=== PATIENT | male | born 1960 | race Caucasian/White ===

== ENCOUNTER 2016-07-21 17:55 | Emergency (ER) | payer OTHER ==
[2016-07-21 18:29] VITALS: BP 120/80; PULSE 106; TEMP 98.7; BMI 21.8
--- NOTE | 2016-07-21 19:10 | PDOC ---
History of Present Illness - General History Source: Patient Exam Limitations: No Limitations - History of Present Illness Initial Comments: 07/21/16 19:30 The patient is a 55 year old male, with significant past medical history of ankylosing spondylosis, chronic neck and back pain, who presents today via ambulance complaining of neck and back pain. The patient describes the discomfort as being very stiff. He states that his neck stiffens when he turns to the left and right when he is sleeping. He states that he has not been compliant with his flexeril. He notes that he has an upcoming appointment with Dr. Ortiz tomorrow. Denies any trauma. Denies fever, chills. Denies chest pain, SOB. Allergies: Penicillin, clindamycin, codeine, fluoxetine HCl, metaxalone, oxycodone HCl, aspirin ROS General: No fevers or chills, no weakness, no weight loss HEENT: No change in vision. No sore throat,. No ear pain CardioVascular: No chest pain or shortness of breath Respiratory:No cough, or wheezing. Gastrointestinal: no nausea, vomiting, diarrhea or constipation, No rectal bleeding Genitourinary: No dysuria, hematuria, or frequency Musculoskeletal: +neck pain, +back pain. Neurologic: No headache, vertigo, dizziness or loss of consciousness Psychiatric: nor depression Skin: No rashes or easy bruising Endocrine: no increased thirst or abnormal weight change Allergic: no skin or latex allergy All other systems reviewed and normal PE GENERAL: The patient is awake, alert, and fully oriented, in mild distress. Body movements are stiff and he holds his neck and back stiff. HEAD: Normal with no signs of trauma. NECK: +Posterior diffuse mild tenderness with palpation with decreased motion secondary to his chronic spinal pain. BACK: +Decreased ROM secondary to chronic back pain. EYES: Pupils equal, round and reactive to light, extraocular movements intact, sclera anicteric, conjunctiva clear. EXTREMITIES: Normal range of motion, no edema. NEUROLOGICAL: Normal speech.. PSYCH: Normal mood, normal affect. SKIN: Warm, Dry, normal turgor, no rashes or lesions noted. <Christine Oneal - Last Filed: 07/21/16 19:31> - General History Source: Patient Exam Limitations: No Limitations - History of Present Illness Initial Comments: 07/21/16 19:45 A portion of this note was documented by scribe services under my direction. I have reviewed the details of the note, within reason, and agree with the documentation. The case summary and management plan written by me. Assessment and plan: This is a 85-year-old male who comes in complaining of acute exacerbation of his chronic pain associated with stiffness. Patient has multiple visits for his chronic pain issues and has a lot of anxiety associated with it. Patient is very anxious today and is concerned because he is stiffer than usual but did stop taking his Flexeril 2 days ago. Patient said that the 10 mg of his Flexeril was too much so I recommended that he restart the Flexeril at 5 mg. Patient took his own Flexeril here in the emergency room and does have an appointment to see his primary care doctor tomorrow. Patient discharged home. <Priyank Dyer I - Last Filed: 07/21/16 19:46> - General Chief Complaint: Chronic pain Stated Complaint: POSTERIOR NECK PAIN Time Seen by Provider: 07/21/16 19:10 Past History <Christine Oneal - Last Filed: 07/21/16 19:31> - Past Medical History Anemia: No Asthma: No Cancer: No Cardiac Disorders: No CVA: No COPD: No CHF: No Dementia: No Diabetes: No GI Disorders: No Disorders: Yes (GERD) HTN: No Hypercholesterolemia: No Liver Disease: No Psychiatric Problems: Yes (anxiety) Seizures: No Thyroid Disease: No - Surgical History Abdominal Surgery: Yes (HERNIA REPAIR) - Immunization History Immunization Up to Date: Yes - Psycho/Social/Smoking Cessation Hx Anxiety: Yes Suicidal Ideation: No Smoking Status: No Smoking History: Never smoked Have you smoked in the past 12 months: No Number of Cigarettes Smoked Daily: 0 Hx Alcohol Use: No Drug/Substance Use Hx: No Substance Use Type: None Hx Substance Use Treatment: No <Priyank Dyer I - Last Filed: 07/21/16 19:46> - Past Medical History Allergies/Adverse Reactions: Allergies Allergy/AdvReac Type Severity Reaction Status Date / Time Penicillins Allergy Intermediate Verified 06/22/16 12:30 clindamycin Allergy Verified 06/22/16 12:30 codeine phosphate Allergy Verified 06/22/16 12:30 [From Tylenol-Codeine] fluoxetine HCl [From Prozac] Allergy Verified 06/22/16 12:30 metaxalone [From Skelaxin] Allergy Verified 06/22/16 12:30 oxycodone HCl [From Percocet] Allergy Verified 06/22/16 12:30 aspirin AdvReac Verified 06/22/16 12:30 Home Medications: Ambulatory Orders Celecoxib [Celebrex] 200 mg PO HS 06/04/15 Cyclobenzaprine HCl [Flexeril] 5 mg PO BID 06/04/15 Celecoxib [Celebrex] 100 mg PO DAILY 11/10/15 Omeprazole 20 mg PO DAILY 06/13/16 Acetaminophen [Pain Reliever] 1,000 mg PO TID PRN 07/21/16 Diazepam [Valium] 1 mg PO DAILY PRN 07/21/16 Golimumab [Simponi -] 50 mg SQ MONTHLY 07/21/16 *Physical Exam - Vital Signs Last Vital Signs Temp Pulse Resp BP Pulse Ox 98.7 F 106 H 16 120/80 98 07/21/16 18:03 07/21/16 18:03 07/21/16 18:03 07/21/16 18:03 07/21/16 18:03 <Christine Oneal - Last Filed: 07/21/16 19:31> - Vital Signs Last Vital Signs Temp Pulse Resp BP Pulse Ox 98.7 F 106 H 16 120/80 98 07/21/16 18:03 07/21/16 18:03 07/21/16 18:03 07/21/16 18:03 07/21/16 18:03 <Priyank Dyer I - Last Filed: 07/21/16 19:46> *DC/Admit/Observation/Transfer - Attestations Scribe Attestion: 07/21/16 19:31 Documentation prepared by SANTY Buenrostro, acting as biomedical equipment technician for Priyank Dyer MD. <Christine Oneal - Last Filed: 07/21/16 19:31> - Discharge Dispostion Admit: No <Priyank Dyer I - Last Filed: 07/21/16 19:46> Diagnosis at time of Disposition: Back stiffness, Neck stiffness - Discharge Dispostion Disposition: HOME Condition at time of disposition: Good - Referrals Referrals: Eros Gómez MD [Primary Care Provider] - - Patient Instructions Additional Instructions: Restart the Flexeril as prescribed taking only 5 mg tablets instead of the 10 mg. Keep your appointment with your doctor for Friday. Return to the emergency department immediately with ANY new, persistent or worsening symptoms. Continue any medications as previously prescribed by your physician. You should follow up with your primary doctor as soon as possible regarding today's emergency department visit. . Please make sure your doctor reviews the results of your emergency evaluation. Thank you for coming to the Emergency Department today for your care. It was a pleasure to see you today. Please note that your evaluation is INCOMPLETE until you follow-up with your doctor.
== END 2016-07-21 19:30 | disposition home or self-care (01) ==
LOC: FER 17:55
DX: M54.9 Dorsalgia, unspecified (principal); M43.6 Torticollis; M45.9 Ankylosing spondylitis of unspecified sites in spine; K21.9 Gastro-esophageal reflux disease without esophagitis; F41.9 Anxiety disorder, unspecified
CPT/HCPCS: 99282-25

== ENCOUNTER 2016-11-09 17:50 | Emergency (ER) | payer OTHER ==
--- NOTE | 2016-11-09 17:53 | PDOC ---
History of Present Illness <Steven Ahn - Last Filed: 11/09/16 18:07> - General History Source: Patient Exam Limitations: No Limitations - History of Present Illness Initial Comments: 11/09/16 18:32 The patient is a 56 year old male, with a significant past medical history of anxiety, ankylosing spondylosis, chronic neck and back pain, who presents to the emergency department with an exacerbation of his back pain. The patient reports that his back pain and stiffness is a 9/10 in severity. He states that starting 8 weeks ago he began receiving an intramuscular biological agent for the pain every 2 weeks, and was supposed to get his 4th dose this past Friday but did not receive it. The patient states that he takes 1000mg tylenol tid and takes celebrex 100mg in the morning and 200mg at night. The patient denies chest pain, radiation of the pain into lower extremities. He denies shortness of breath, HERNANDEZ, fever, chills, sweats, cough, N/V/D, bladder or bowel incontinence and retention He denies upper or lower extremity weakness or paresthesia. He denies hematuria or dysuria. Allergies: penicillin, clindamycin, codeine, fluoxetine HCl, metaxalone, oxycodone HCl, aspirin Past surgical history: Hernia repair Social history: Never smoked. Denies alcohol or illicit drug use. Artist Mannequin Coloring: Dr. Zulay Bateman <Roselyn Santillan - Last Filed: 11/09/16 18:33> - General Chief Complaint: Pain, Acute Stated Complaint: PAIN TO SPINE Time Seen by Provider: 11/09/16 17:52 Past History - Past Medical History Anemia: No Asthma: No Cancer: No Cardiac Disorders: No CVA: No COPD: No CHF: No Dementia: No Diabetes: No GI Disorders: No Disorders: Yes (GERD) HTN: No Hypercholesterolemia: No Liver Disease: No Psychiatric Problems: Yes (anxiety) Seizures: No Thyroid Disease: No - Surgical History Abdominal Surgery: Yes (HERNIA REPAIR) - Immunization History Immunization Up to Date: Yes - Psycho/Social/Smoking Cessation Hx Anxiety: Yes Suicidal Ideation: No Smoking Status: No Smoking History: Never smoked Have you smoked in the past 12 months: No Number of Cigarettes Smoked Daily: 0 Hx Alcohol Use: No Drug/Substance Use Hx: No Substance Use Type: None Hx Substance Use Treatment: No <Steven Ahn - Last Filed: 11/09/16 18:07> <Roselyn Santillan - Last Filed: 11/09/16 18:33> - Past Medical History Allergies/Adverse Reactions: Allergies Allergy/AdvReac Type Severity Reaction Status Date / Time Penicillins Allergy Intermediate Verified 06/22/16 12:30 clindamycin Allergy Verified 06/22/16 12:30 codeine phosphate Allergy Verified 06/22/16 12:30 [From Tylenol-Codeine] fluoxetine HCl [From Prozac] Allergy Verified 06/22/16 12:30 metaxalone [From Skelaxin] Allergy Verified 06/22/16 12:30 oxycodone HCl [From Percocet] Allergy Verified 06/22/16 12:30 aspirin AdvReac Verified 06/22/16 12:30 Home Medications: Ambulatory Orders Celecoxib [Celebrex] 200 mg PO HS 06/04/15 Celecoxib [Celebrex] 100 mg PO DAILY 11/10/15 Acetaminophen [Pain Reliever] 1,000 mg PO TID PRN 07/21/16 Diazepam [Valium] 5 mg PO Q8H PRN #9 tablet MDD 3 11/09/16 Lorazepam [Ativan] 1 mg PO BID 11/09/16 Ranitidine HCl [Zantac 75] 75 mg PO DAILY 11/09/16 Review of Systems - Review of Systems Able to Perform ROS?: Yes Comments:: 11/09/16 18:32 CONSTITUTIONAL: Absent: fever, no chills, no fatigue EYES: Absent: visual changes ENT: Absent: ear pain, no sore throat CARDIOVASCULAR: Absent: chest pain, no palpitations RESPIRATORY: Absent: cough, no SOB GI: Absent: abdominal pain, no nausea, no vomiting, no constipation, no diarrhea GENITOURINARY: Absent: dysuria, no frequency, no hematuria MUSCULOSKELETAL: +Back pain and stiffness Absent: SKIN: Absent: rash <Roselyn Santillan - Last Filed: 11/09/16 18:33> *Physical Exam - Vital Signs Last Vital Signs Temp Pulse Resp BP Pulse Ox 98.2 F 88 16 124/85 11/09/16 17:52 11/09/16 17:52 11/09/16 17:52 11/09/16 17:52 - Physical Exam Comments: 11/09/16 18:33 GENERAL: Well-appearing, well-nourished. No apparent distress. HEENT: Normocephalic, atraumatic. PERRL, EOM intact. CARDIOVASCULAR: Normal S1, S2. Regular rate and rhythm. PULMONARY: Clear to auscultation bilaterally. ABDOMEN: Soft, non-distended, non-tender. EXTREMITIES: Normal ROM in all four extremities. No gross deformities. SKIN: Warm, dry. No rash NEUROLOGICAL: No focal neurological deficits. <Roselyn Santillan - Last Filed: 11/09/16 18:33> ED Treatment Course - Medications Given in the ED: ED Medications Discontinued Medications Generic Name Dose Route Start Last Admin Trade Name Freq PRN Reason Stop Dose Admin Ketorolac Tromethamine 60 mg 11/09/16 18:17 11/09/16 18:23 Toradol Injection - IM 11/09/16 18:18 60 mg ONCE ONE Administration <Roselyn Santillan - Last Filed: 11/09/16 18:33> Medical Decision Making - Medical Decision Making 11/09/16 18:07 The patient is well-appearing and in no acute distress He is slightly anxious. He states that in the past, he has been treated successfully with intramuscular Toradol followed by Valium Will provide 60 mg of intramuscular Toradol Will prescribe Valium He will follow-up with his chief power dispatcher on Friday for further evaluation Clinical impression: Acute exacerbation of chronic back pain secondary to ankylosing spondylitis I discussed the physical exam findings, ancillary test results and final diagnoses with the patient. I answered all of the patient's questions. The patient was satisfied with the care received and felt comfortable with the discharge plan and treatment plan. The patient will call their primary care physician within 24 hours to arrange follow-up and will return to the Emergency Department with any new, persistent or worsening symptoms. <Steven Ahn - Last Filed: 11/09/16 18:07> *DC/Admit/Observation/Transfer <Steven Ahn - Last Filed: 11/09/16 18:07> - Attestations Scribe Attestion: 11/09/16 18:33 Documentation prepared by SANTY Gr, acting as medical doctor md/medical director for Steven Ahn MD. <Roselyn Santillan - Last Filed: 11/09/16 18:33> Diagnosis at time of Disposition: Ankylosing spondylitis, Back pain - Discharge Dispostion Disposition: HOME Condition at time of disposition: Stable - Prescriptions Prescriptions: Diazepam [Valium] 5 mg PO Q8H PRN #9 tablet MDD 3 PRN Reason: Pain - Patient Instructions Printed Discharge Instructions: DI for Low Back Pain Additional Instructions: Return to the emergency department immediately with ANY new, persistent or worsening symptoms. You MUST call and follow up with your doctor tomorrow. Please make sure your doctor reviews the results of your emergency department evaluation.
--- NOTE | 2016-11-09 17:56 | PDOC ---
History of Present Illness - General Chief Complaint: Pain, Acute Stated Complaint: PAIN TO SPINE Time Seen by Provider: 11/09/16 17:52 Past History - Past Medical History Allergies/Adverse Reactions: Allergies Allergy/AdvReac Type Severity Reaction Status Date / Time Penicillins Allergy Intermediate Verified 06/22/16 12:30 clindamycin Allergy Verified 06/22/16 12:30 codeine phosphate Allergy Verified 06/22/16 12:30 [From Tylenol-Codeine] fluoxetine HCl [From Prozac] Allergy Verified 06/22/16 12:30 metaxalone [From Skelaxin] Allergy Verified 06/22/16 12:30 oxycodone HCl [From Percocet] Allergy Verified 06/22/16 12:30 aspirin AdvReac Verified 06/22/16 12:30 Home Medications: Ambulatory Orders Celecoxib [Celebrex] 200 mg PO HS 06/04/15 Cyclobenzaprine HCl [Flexeril] 5 mg PO BID 06/04/15 Celecoxib [Celebrex] 100 mg PO DAILY 11/10/15 Omeprazole 20 mg PO DAILY 06/13/16 Acetaminophen [Pain Reliever] 1,000 mg PO TID PRN 07/21/16 Diazepam [Valium] 1 mg PO DAILY PRN 07/21/16 Golimumab [Simponi -] 50 mg SQ MONTHLY 07/21/16 Anemia: No Asthma: No Cancer: No Cardiac Disorders: No CVA: No COPD: No CHF: No Dementia: No Diabetes: No GI Disorders: No Disorders: Yes (GERD) HTN: No Hypercholesterolemia: No Liver Disease: No Psychiatric Problems: Yes (anxiety) Seizures: No Thyroid Disease: No - Surgical History Abdominal Surgery: Yes (HERNIA REPAIR) - Immunization History Immunization Up to Date: Yes - Psycho/Social/Smoking Cessation Hx Anxiety: Yes Suicidal Ideation: No Smoking Status: No Smoking History: Never smoked Have you smoked in the past 12 months: No Number of Cigarettes Smoked Daily: 0 Hx Alcohol Use: No Drug/Substance Use Hx: No Substance Use Type: None Hx Substance Use Treatment: No *DC/Admit/Observation/Transfer - Discharge Dispostion Condition at time of disposition: Stable
[2016-11-09 18:16] VITALS: BP 124/85; PULSE 88; TEMP 98.2; BMI 22.0
[2016-11-09] MEDS ORDERED: KETOROLAC TROMETHAMINE 60 MG/2 ML VIAL IM ONE (18:17)
[2016-11-09] MEDS ORDERED: KETOROLAC TROMETHAMINE 60 MG/2 ML VIAL ONE (18:19)
== END 2016-11-09 19:08 | disposition home or self-care (01) ==
LOC: FER 17:50
PROC: 3E0233Z Introduction of Anti-inflammatory into Muscle, Percutaneous Approach (ICD-10-PCS; principal; 2016-11-09)
DX: M45.9 Ankylosing spondylitis of unspecified sites in spine (principal); M54.9 Dorsalgia, unspecified; F41.9 Anxiety disorder, unspecified
CPT/HCPCS: 99282-25

== ENCOUNTER 2016-12-06 13:05 | Emergency (ER) | payer OTHER ==
--- NOTE | 2016-12-06 13:19 | PDOC ---
History of Present Illness - General Chief Complaint: Pain Stated Complaint: BACK PAIN Time Seen by Provider: 12/06/16 13:09 History Source: Patient Exam Limitations: No Limitations - History of Present Illness Initial Comments: 12/06/16 13:09 The patient is a 56 year old male, with a significant past medical history of anxiety, ankylosing spondylosis, chronic neck and back pain, who presents to the emergency department with an exacerbation of his back pain. The patient reports that his back pain and stiffness is a 9/10 in severity. He was switched to Biologics instead of the medication which actually helped him previously ( due to his insurance regulation). He had his 5th shot last week of this new medication. Since then he has noted gradual worsening of his back and neck pain and stiffness No fevers or chills No trauma Pt ambulatory but is stiff His predominant symptoms is stiffness He denies fever, chills, sweats, cough, N/V/D, bladder or bowel incontinence and retention He contacted Dr. Bateman's office re: his symptoms He was told to come in to the ER Allergies: penicillin, clindamycin, codeine, fluoxetine HCl, metaxalone, oxycodone HCl, aspirin Past surgical history: Hernia repair Social history: Never smoked. Denies alcohol or illicit drug use. Project Management Engineer: Dr. Zulay Bateman GENERAL/CONSTITUTIONAL: No: fever, chills, weakness, loss of appetite. HEAD, EYES, EARS, NOSE AND THROAT: No: change in vision, ear pain, discharge, sore throat, throat swelling. CARDIOVASCULAR: No: chest pain, lightheadedness, palpitations, syncope RESPIRATORY: No: cough, shortness of breath, wheezing, hemoptysis, stridor. GASTROINTESTINAL: No: nausea, vomiting, diarrhea, abdominal cramping, rectal bleeding, constipation. GENITOURINARY: No: dysuria, hematuria, frequency, urgency, flank pain. MUSCULOSKELETAL: Yes: back stiffness, back pain, neck stiffness No: joint pain, muscle swelling or pain SKIN: No: lesions, pallor, rash or easy bruising. NEUROLOGIC: No: headache, vertigo, paresthesias, weakness ENDOCRINE: No: unexplained weight gain or loss HEMATOLOGIC/LYMPHATIC: No: anemia, easy bleeding, swelling nodes. GENERAL: The patient is in no acute distress. HEAD: Normal with no signs of trauma. EYES: PERRLA, EOMI, sclera anicteric, conjunctiva clear. ENT: Ears normal, nares patent, oropharynx clear without exudates. Moist mucous membranes. NECK: Normal range of motion, supple without lymphadenopathy, JVD, or masses. LUNGS: Breath sounds equal, clear to auscultation bilaterally. No wheezes, and no crackles. HEART: Regular rate and rhythm, normal S1 and S2 without murmur, rub or gallop. ABDOMEN: Soft, nontender, normoactive bowel sounds. No guarding, no rebound. No masses palpable. EXTREMITIES: Normal range of motion, no edema. No clubbing or cyanosis. No erythema, or tenderness. NEUROLOGICAL: Cranial nerves II through XII grossly intact. Normal speech. No focal neurological deficits. MUSCULOSKELETAL: Yes: Back non-tender to palpation, no CVA tenderness SKIN: Warm, Dry, normal turgor, no rashes or lesions noted. 12/06/16 13:51 Past History - Past Medical History Allergies/Adverse Reactions: Allergies Allergy/AdvReac Type Severity Reaction Status Date / Time Penicillins Allergy Intermediate Verified 06/22/16 12:30 clindamycin Allergy Verified 06/22/16 12:30 codeine phosphate Allergy Verified 06/22/16 12:30 [From Tylenol-Codeine] fluoxetine HCl [From Prozac] Allergy Verified 06/22/16 12:30 metaxalone [From Skelaxin] Allergy Verified 06/22/16 12:30 oxycodone HCl [From Percocet] Allergy Verified 06/22/16 12:30 aspirin AdvReac Verified 06/22/16 12:30 Home Medications: Ambulatory Orders Celecoxib [Celebrex] 200 mg PO HS 06/04/15 Celecoxib [Celebrex] 100 mg PO DAILY 11/10/15 Acetaminophen [Pain Reliever] 1,000 mg PO TID PRN 07/21/16 Lorazepam [Ativan] 1 mg PO BID 11/09/16 Ranitidine HCl [Zantac 75] 75 mg PO DAILY 11/09/16 Baclofen 10 mg PO DAILY 12/06/16 Dexlansoprazole [Dexilant] 30 mg PO DAILY 12/06/16 Methocarbamol [Robaxin -] 500 mg PO TID PRN #21 tablet 12/06/16 Quetiapine Fumarate [Seroquel -] 50 mg PO HS 12/06/16 Anemia: No Asthma: No Cancer: No Cardiac Disorders: No CVA: No COPD: No CHF: No Dementia: No Diabetes: No GI Disorders: No Disorders: Yes (GERD) HTN: No Hypercholesterolemia: No Liver Disease: No Psychiatric Problems: Yes (anxiety) Seizures: No Thyroid Disease: No - Surgical History Abdominal Surgery: Yes (HERNIA REPAIR) - Immunization History Immunization Up to Date: Yes - Psycho/Social/Smoking Cessation Hx Anxiety: Yes Suicidal Ideation: No Smoking Status: No Smoking History: Never smoked Have you smoked in the past 12 months: No Number of Cigarettes Smoked Daily: 0 Hx Alcohol Use: No Drug/Substance Use Hx: No Substance Use Type: None Hx Substance Use Treatment: No Medical Decision Making - Medical Decision Making 12/06/16 13:19 Will give toradol as this has helped in the past 12/06/16 13:58 Toradol given Pt is concerned about muscle spasm Will give Robaxin He has not had this before States Flexeril and Valium have not worked for him in the past Clinical impression: Flair of *DC/Admit/Observation/Transfer Diagnosis at time of Disposition: Ankylosing spondylitis Qualifiers: Ankylosing spondylitis location: multiple sites in spine Qualified Code(s): M45.0 - Ankylosing spondylitis of multiple sites in spine - Discharge Dispostion Disposition: HOME Condition at time of disposition: Stable Admit: No - Prescriptions Prescriptions: Methocarbamol [Robaxin -] 500 mg PO TID PRN #21 tablet PRN Reason: Pain - Referrals Referrals: Zulay Bateman MD [Primary Care Provider] - - Patient Instructions Printed Discharge Instructions: DI for Ankylosing Spondylitis Additional Instructions: Thank you so much for coming in to the ER today Please take Robaxin, maybe this will work for you Please return to the ER for persistence or worsening of symptoms Please see Dr Bateman in the office [email or web address]
[2016-12-06] MEDS ORDERED: KETOROLAC TROMETHAMINE 30 MG/1 ML VIAL IM ONE (13:20)
[2016-12-06] MEDS ORDERED: KETOROLAC TROMETHAMINE 30 MG/1 ML VIAL ONE (13:22)
[2016-12-06 13:23] VITALS: BP 121/69; PULSE 90; TEMP 98.1; BMI 21.7
== END 2016-12-06 14:10 | disposition home or self-care (01) ==
LOC: FER 13:05
PROC: 3E0333Z Introduction of Anti-inflammatory into Peripheral Vein, Percutaneous Approach (ICD-10-PCS; principal; 2016-12-06)
DX: M45.0 Ankylosing spondylitis of multiple sites in spine (principal); F41.9 Anxiety disorder, unspecified; K21.9 Gastro-esophageal reflux disease without esophagitis
CPT/HCPCS: 96372; 99282-25

== ENCOUNTER 2016-12-22 11:40 | Emergency (ER) | payer OTHER ==
--- NOTE | 2016-12-22 11:53 | PDOC ---
History of Present Illness - General Chief Complaint: Psychiatric Stated Complaint: SWELLING Time Seen by Provider: 12/22/16 11:52 History Source: Patient Exam Limitations: No Limitations - History of Present Illness Initial Comments: 12/22/16 11:53 The patient is a 56-year-old male with a significant past medical history of rheumatoid arthritis, anxiety, who presents to the emergency department because he is concerned that he has developed swelling in the right chest wall following the use of methotrexate yesterday. He states that methotrexate is a new medication for him, and has been prescribed once per week. He took the first dose yesterday. This morning, he feels that there may be some swelling in the right lateral chest wall. He denies swelling of the lips, tongue, throat, rash, dyspnea, wheeze, cough, abdominal pain, nausea, vomiting. He did not take any other new medications. He states that he has often had mild side effects from medications, and is concerned that he is developing a mild side effect from this one. Past History - Past Medical History Allergies/Adverse Reactions: Allergies Allergy/AdvReac Type Severity Reaction Status Date / Time Penicillins Allergy Intermediate Verified 06/22/16 12:30 clindamycin Allergy Verified 06/22/16 12:30 codeine phosphate Allergy Verified 06/22/16 12:30 [From Tylenol-Codeine] fluoxetine HCl [From Prozac] Allergy Verified 06/22/16 12:30 metaxalone [From Skelaxin] Allergy Verified 06/22/16 12:30 oxycodone HCl [From Percocet] Allergy Verified 06/22/16 12:30 aspirin AdvReac Verified 06/22/16 12:30 Home Medications: Ambulatory Orders Celecoxib [Celebrex] 200 mg PO HS 06/04/15 Celecoxib [Celebrex] 100 mg PO DAILY 11/10/15 Acetaminophen [Pain Reliever] 1,000 mg PO TID PRN 07/21/16 Lorazepam [Ativan] 1 mg PO BID 11/09/16 Ranitidine HCl [Zantac 75] 75 mg PO DAILY 11/09/16 Baclofen 10 mg PO DAILY 12/06/16 Dexlansoprazole [Dexilant] 30 mg PO DAILY 12/06/16 Methocarbamol [Robaxin -] 500 mg PO TID PRN #21 tablet 12/06/16 Quetiapine Fumarate [Seroquel -] 50 mg PO HS 12/06/16 Anemia: No Asthma: No Cancer: No Cardiac Disorders: No CVA: No COPD: No CHF: No Dementia: No Diabetes: No GI Disorders: No Disorders: Yes (GERD) HTN: No Hypercholesterolemia: No Liver Disease: No Psychiatric Problems: Yes (anxiety) Seizures: No Thyroid Disease: No - Surgical History Abdominal Surgery: Yes (HERNIA REPAIR) - Immunization History Immunization Up to Date: Yes - Psycho/Social/Smoking Cessation Hx Anxiety: Yes Suicidal Ideation: No Smoking Status: No Smoking History: Never smoked Have you smoked in the past 12 months: No Number of Cigarettes Smoked Daily: 0 Hx Alcohol Use: No Drug/Substance Use Hx: No Substance Use Type: None Hx Substance Use Treatment: No Review of Systems - Review of Systems Comments:: 12/22/16 11:55 CONSTITUTIONAL: Absent: fever, chills, fatigue EYES: Absent: visual changes ENT: Absent: ear pain, sore throat CARDIOVASCULAR: Absent: chest pain, palpitations, loss of consciousness RESPIRATORY: Absent: cough, SOB GI: Absent: abdominal pain, nausea, vomiting, constipation, diarrhea GENITOURINARY: Absent: dysuria, frequency, hematuria MUSKULOSKELETAL: Absent: back pain, arthralgia, myalgia SKIN: Absent: rash NEURO: Absent: headache, dizziness *Physical Exam - Physical Exam Comments: 12/22/16 11:55 GENERAL: Well-appearing, well-nourished. No apparent distress. HEENT: Normocephalic, atraumatic. PERRL, EOM intact. CARDIOVASCULAR: Normal S1, S2. Regular rate and rhythm. PULMONARY: Clear to auscultation bilaterally. ABDOMEN: Soft, non-distended, non-tender. EXTREMITIES: Normal ROM in all four extremities. No gross deformities. SKIN: Warm, dry. No rash NEUROLOGICAL: No focal neurological deficits. Medical Decision Making - Medical Decision Making 12/22/16 11:55 The patient is well-appearing and in no acute distress There is no objective evidence of swelling in the area which she describes Lungs are clear Abdomen is nontender Given that there is no objective evidence of his complaint, that his complaint is not escalating, and that he is not supposed to take an additional dose of methotrexate for another 6 days, I advised him to discuss further methotrexate use with his commercial mortgage broker I feel that he is stable for discharge He understands the need to return if his symptoms worsen or if he develops new symptoms Clinical impression: Concerned for possible adverse medication effects I discussed the physical exam findings, ancillary test results and final diagnoses with the patient. I answered all of the patient's questions. The patient was satisfied with the care received and felt comfortable with the discharge plan and treatment plan. The patient will call their primary care physician within 24 hours to arrange follow-up and will return to the Emergency Department with any new, persistent or worsening symptoms. *DC/Admit/Observation/Transfer Diagnosis at time of Disposition: Medication adverse effect - Discharge Dispostion Disposition: HOME Condition at time of disposition: Good - Referrals Referrals: Zulay Bateman MD [Primary Care Provider] - - Patient Instructions Printed Discharge Instructions: DI for Rheumatoid Arthritis Additional Instructions: Please speak with your commercial mortgage broker about further methotrexate use. Return to the emergency department immediately with ANY new, persistent or worsening symptoms. You MUST call and follow up with your doctor tomorrow. Please make sure your doctor reviews the results of your emergency department evaluation.
[2016-12-22 12:06] VITALS: BP 124/77; PULSE 90; TEMP 97.7; BMI 21.7
== END 2016-12-22 12:08 | disposition home or self-care (01) ==
LOC: FER 11:40
DX: T45.1X1A Poisoning by antineoplastic and immunosuppressive drugs, accidental (unintentional), initial encounter (principal); Y93.9 Activity, unspecified; Y92.9 Unspecified place or not applicable; M06.9 Rheumatoid arthritis, unspecified; F41.9 Anxiety disorder, unspecified; K21.9 Gastro-esophageal reflux disease without esophagitis
CPT/HCPCS: 99282-25

== ENCOUNTER 2016-12-24 10:03 | Emergency (ER) | payer OTHER ==
[2016-12-24] MEDS ORDERED: CYCLOBENZAPRINE HCL 10 MG TABLET (FP) PO ONE (10:19)
--- NOTE | 2016-12-24 10:19 | PDOC ---
History of Present Illness - General Chief Complaint: Pain, Acute Stated Complaint: STIFFNESS AND PAIN TO NECK AND LOWER BACK Time Seen by Provider: 12/24/16 10:14 History Source: Patient Exam Limitations: No Limitations - History of Present Illness Initial Comments: 12/24/16 10:14 56 y/o male with ankylosing spondylitis, presents to the ER via ambulance due to increase neck and back spasms. Patient was stopped from taking his prednisone and placed on Methotrexate. Ever since starting this he has had increase back pain. No fever or chills. No weakness or numbness. Denies fall or trauma. Took another new medication this morning Zanaflex. Denies SOB or chest pain. No incontinence or procedures. Severity: mild Past History - Past Medical History Allergies/Adverse Reactions: Allergies Allergy/AdvReac Type Severity Reaction Status Date / Time Penicillins Allergy Intermediate Verified 12/24/16 10:05 clindamycin Allergy Verified 12/24/16 10:06 codeine phosphate Allergy Verified 12/24/16 10:06 [From Tylenol-Codeine] fluoxetine HCl [From Prozac] Allergy Verified 12/24/16 10:06 metaxalone [From Skelaxin] Allergy Verified 12/24/16 10:06 oxycodone HCl [From Percocet] Allergy Verified 12/24/16 10:07 aspirin AdvReac Verified 12/24/16 10:07 Home Medications: Ambulatory Orders Celecoxib [Celebrex] 200 mg PO HS 06/04/15 Celecoxib [Celebrex] 100 mg PO DAILY 11/10/15 Lorazepam [Ativan] 0.5 mg PO TID 11/09/16 Ranitidine HCl [Zantac 75] 75 mg PO DAILY 11/09/16 Quetiapine Fumarate [Seroquel -] 50 mg PO HS 12/06/16 Folic Acid 1 mg PO ASDIR 12/22/16 Methotrexate [Mexate -] 10 mg PO Q7D 12/22/16 Anemia: No Asthma: No Cancer: No Cardiac Disorders: No CVA: No COPD: No CHF: No Dementia: No Diabetes: No GI Disorders: No Disorders: Yes (GERD) HTN: No Hypercholesterolemia: No Liver Disease: No Psychiatric Problems: Yes (anxiety) Seizures: No Thyroid Disease: No - Surgical History Abdominal Surgery: Yes (HERNIA REPAIR) - Immunization History Immunization Up to Date: Yes - Psycho/Social/Smoking Cessation Hx Anxiety: Yes Suicidal Ideation: No Smoking Status: No Smoking History: Never smoked Have you smoked in the past 12 months: No Number of Cigarettes Smoked Daily: 0 Hx Alcohol Use: No Drug/Substance Use Hx: No Substance Use Type: None Hx Substance Use Treatment: No Review of Systems - Review of Systems Able to Perform ROS?: Yes Is the patient limited Kiswahili proficient: No Constitutional: No: Chills, Fever Respiratory: No: Cough, Shortness of Breath Cardiac (ROS): No: Chest Pain, Edema, Irregular Heart Rate ABD/GI: No: Nausea, Vomiting Musculoskeletal: Yes: Back Pain, Muscle Pain, Neck Pain. No: Muscle Weakness Neurological: No: Headache, Numbness, Paresthesia All Other Systems: Reviewed and Negative *Physical Exam - Physical Exam General Appearance: Yes: Nourished, Appropriately Dressed. No: Apparent Distress HEENT: positive: EOMI, CARLOS, Normal ENT Inspection Neck: positive: Trachea midline, Normal Thyroid, Supple. negative: Tender, Rigid Respiratory/Chest: positive: Lungs Clear, Normal Breath Sounds. negative: Chest Tender, Respiratory Distress Cardiovascular: positive: Regular Rhythm, Regular Rate, S1, S2. negative: Edema , JVD, Murmur Vascular Pulses: Femoral (R): 4+, Femoral (L): 4+, Carotid (R): 4+, Carotid (L) : 4+, Dorsalis-Pedis (R): 4+, Doralis-Pedis (L): 4+ Gastrointestinal/Abdominal: positive: Normal Bowel Sounds, Flat, Soft. negative : Tender, Organomegaly, Pulsatile Mass Musculoskeletal: positive: Normal Inspection. negative: CVA Tenderness Extremity: positive: Normal Capillary Refill, Normal Inspection, Normal Range of Motion. negative: Tender, Calf Tenderness Neurologic: positive: football pad repairer II-XII NML intact, Fully Oriented, Alert, Normal Mood/ Affect, Normal Response, Motor Strength 5/5 (strength 5+/5 b/l in UE and LE, no focal deficits noted, no menigeal sign, no spinous process tenderness, decreased ROM or cervical and thoracic spine) ED Treatment Course - ADDITIONAL ORDERS Additional order review: 12/24/16 10:18 Pt with anklyosing spondylitis, will give Flexeril and watch Pt is in agreement with plan 12/24/16 11:17 Pt is ambulating, feeling better. No neurological deficits noted Pt is ready to go home follow up with production operator if worsen return to ER *DC/Admit/Observation/Transfer Diagnosis at time of Disposition: Muscle spasm of back Ankylosing spondylitis Qualifiers: Ankylosing spondylitis location: unspecified site of spine Qualified Code(s): M45.9 - Ankylosing spondylitis of unspecified sites in spine - Discharge Dispostion Disposition: HOME Condition at time of disposition: Stable Admit: No - Patient Instructions Printed Discharge Instructions: DI for Ankylosing Spondylitis Additional Instructions: Call Salvage Engineer to follow up Continue current treatment If worsen return to ER
[2016-12-24 10:24] VITALS: BP 131/82; PULSE 101; TEMP 98.3; BMI 51.6
[2016-12-24] MEDS ORDERED: CYCLOBENZAPRINE HCL 10 MG TABLET (FP) ONE (10:46)
== END 2016-12-24 11:23 | disposition home or self-care (01) ==
LOC: FER 10:03
DX: M54.9 Dorsalgia, unspecified (principal); K21.9 Gastro-esophageal reflux disease without esophagitis; F41.9 Anxiety disorder, unspecified
CPT/HCPCS: 99282-25

== ENCOUNTER 2016-12-25 13:23 | Emergency (ER) | payer OTHER ==
[2016-12-25 13:37] VITALS: BP 138/78; PULSE 72; TEMP 98.3; BMI 26.6
[2016-12-25] MEDS ORDERED: LORazepam 1 MG TABLET PO ONE (14:05)
[2016-12-25] MEDS ORDERED: LORazepam 0.5 MG TABLET ONE (14:07)
--- NOTE | 2016-12-25 14:10 | PDOC ---
History of Present Illness - General Chief Complaint: Chronic pain Stated Complaint: BACK PAIN Time Seen by Provider: 12/25/16 14:04 - History of Present Illness Initial Comments: 12/25/16 15:29 Chief complaint: Neck stiffness History of present illness: Patient with severe ankylosing spondylitis under the care of a field radio technician, pain management physician, presents with increased neck pain and stiffness since this morning. No injury. The patient has frequent exacerbations and is seen in the emergency room regularly. Anxiety is a strong component of the illness as well. His field radio technician recently prescribed methotrexate and folic acid. He took several doses of 2.5 mg methotrexate and discontinued it because of "side effects". This is the usual pattern. He frequently presents to the emergency room after trying a new medication for several days and attributes his worsening condition to the new drug. Review of systems: No other symptoms including chest pain shortness of breath abdominal pain nausea vomiting diarrhea visual or focal neurologic symptoms unsteadiness of gait Past medical, social, family history reviewed and noncontributory Physical exam: Alert and oriented 3, well-developed well-nourished, moderate distress secondary to neck stiffness and pain Afebrile, vital signs normal Spasm and straightening of the cervical spine without sign of acute inflammation. No point tenderness or other deformity. No radicular symptoms to the upper arms. Impression: Exacerbation of chronic neck pain, anxiety Plan: Refill benzodiazepine. Administered Tylenol and Ativan. To follow-up with batcher operator in pain management physician as soon as possible. Fully ambulatory and in his usual state upon discharge to follow-up as directed Past History - Past Medical History Allergies/Adverse Reactions: Allergies Allergy/AdvReac Type Severity Reaction Status Date / Time Penicillins Allergy Intermediate Verified 12/25/16 13:25 clindamycin Allergy Verified 12/25/16 13:25 codeine phosphate Allergy Verified 12/25/16 13:25 [From Tylenol-Codeine] fluoxetine HCl [From Prozac] Allergy Verified 12/25/16 13:25 metaxalone [From Skelaxin] Allergy Verified 12/25/16 13:25 oxycodone HCl [From Percocet] Allergy Verified 12/25/16 13:25 aspirin AdvReac Verified 12/25/16 13:25 Home Medications: Ambulatory Orders Celecoxib [Celebrex] 200 mg PO HS 06/04/15 Celecoxib [Celebrex] 100 mg PO DAILY 11/10/15 Lorazepam [Ativan] 0.5 mg PO TID 11/09/16 Ranitidine HCl [Zantac 75] 75 mg PO DAILY 11/09/16 Quetiapine Fumarate [Seroquel -] 50 mg PO HS 12/06/16 Folic Acid 1 mg PO ASDIR 12/22/16 Methotrexate [Mexate -] 10 mg PO Q7D 12/22/16 Lorazepam [Ativan] 0.5 mg PO TID #10 tablet MDD 3 12/25/16 Anemia: No Asthma: No Cancer: No Cardiac Disorders: No CVA: No COPD: No CHF: No Dementia: No Diabetes: No GI Disorders: No Disorders: Yes (GERD) HTN: No Hypercholesterolemia: No Liver Disease: No Psychiatric Problems: Yes (anxiety) Seizures: No Thyroid Disease: No - Surgical History Abdominal Surgery: Yes (HERNIA REPAIR) - Immunization History Immunization Up to Date: Yes - Psycho/Social/Smoking Cessation Hx Anxiety: Yes Suicidal Ideation: No Smoking Status: No Smoking History: Never smoked Have you smoked in the past 12 months: No Number of Cigarettes Smoked Daily: 0 Information on smoking cessation initiated: No Hx Alcohol Use: No Drug/Substance Use Hx: No Substance Use Type: None Hx Substance Use Treatment: No *Physical Exam - Vital Signs Last Vital Signs Temp Pulse Resp BP Pulse Ox 98.3 F 72 20 138/78 98 12/25/16 13:24 12/25/16 13:24 12/25/16 13:24 12/25/16 13:24 12/25/16 13:24 *DC/Admit/Observation/Transfer Diagnosis at time of Disposition: Anxiety - Discharge Dispostion Disposition: HOME Condition at time of disposition: Stable Admit: No - Prescriptions Prescriptions: Lorazepam [Ativan] 0.5 mg PO TID #10 tablet MDD 3 - Patient Instructions Printed Discharge Instructions: DI for Chronic Neck Pain
== END 2016-12-25 15:09 | disposition home or self-care (01) ==
LOC: FER 13:23
DX: F41.9 Anxiety disorder, unspecified (principal); K21.9 Gastro-esophageal reflux disease without esophagitis; M45.9 Ankylosing spondylitis of unspecified sites in spine
CPT/HCPCS: 99282-25

== ENCOUNTER 2017-05-19 16:38 | Emergency (ER) | payer OTHER ==
[2017-05-19 16:55] VITALS: BP 155/88; PULSE 85; TEMP 98; BMI 26.6
--- NOTE | 2017-05-19 17:18 | PDOC ---
History of Present Illness <Mary Earl - Last Filed: 05/19/17 17:31> - History of Present Illness Initial Comments: 05/19/17 17:27 The patient is a 56 year old male, with a significant past medical history of anxiety, ankylosing spondylitis (sees a retail wireless associate), chronic neck and back pain, who presents to the emergency department with cervical pain and back pain( 1 month). He states that he felt a sharp pain in his neck, rates it 9/10. His retail wireless associate wants him to follow up with his neurologist. He denies any recent fevers, chills, headache or dizziness. He denies any recent nausea, vomit, diarrhea or constipation. He denies any recent chest pain or shortness of breath. He denies any recent dysuria, frequency, urgency or hematuria. <Aster Morales - Last Filed: 05/19/17 17:34> - General Chief Complaint: Pain, Acute Stated Complaint: low back pain Time Seen by Provider: 05/19/17 16:48 Past History - Past Medical History Anemia: No Asthma: No Cancer: No Cardiac Disorders: No CVA: No COPD: No CHF: No Dementia: No Diabetes: No GI Disorders: No Disorders: Yes (GERD) HTN: No Hypercholesterolemia: No Liver Disease: No Psychiatric Problems: Yes (anxiety) Seizures: No Thyroid Disease: No - Surgical History Abdominal Surgery: Yes (HERNIA REPAIR) - Immunization History Immunization Up to Date: Yes - Suicide/Smoking/Psychosocial Hx Smoking Status: No Smoking History: Never smoked Have you smoked in the past 12 months: No Number of Cigarettes Smoked Daily: 0 Hx Alcohol Use: No Drug/Substance Use Hx: No Substance Use Type: Prescribed Hx Substance Use Treatment: No <Mary Earl - Last Filed: 05/19/17 17:31> <Aster Morales - Last Filed: 05/19/17 17:34> - Past Medical History Allergies/Adverse Reactions: Allergies Allergy/AdvReac Type Severity Reaction Status Date / Time Penicillins Allergy Intermediate Verified 05/19/17 16:40 clindamycin Allergy Verified 05/19/17 16:40 codeine phosphate Allergy Verified 05/19/17 16:40 [From Tylenol-Codeine] cyclobenzaprine HCl Allergy Verified 05/19/17 16:41 [From Flexeril] fluoxetine HCl [From Prozac] Allergy Verified 05/19/17 16:40 metaxalone [From Skelaxin] Allergy Verified 05/19/17 16:40 oxycodone HCl [From Percocet] Allergy Verified 05/19/17 16:40 aspirin AdvReac Verified 05/19/17 16:40 Home Medications: Ambulatory Orders Celecoxib [Celebrex] 200 mg PO HS 06/04/15 Lorazepam [Ativan] 1 mg PO BID 11/09/16 Quetiapine Fumarate [Seroquel -] 50 mg PO HS 12/06/16 Folic Acid 1 mg PO ASDIR 12/22/16 Methotrexate [Mexate -] 2.5 mg PO Q7D 12/22/16 Gabapentin [Neurontin -] 300 mg PO HS 05/19/17 Tizanidine HCl 2 mg PO TID 05/19/17 Review of Systems - Review of Systems Comments:: 05/19/17 17:28 GENERAL/CONSTITUTIONAL: No fever or chills. No weakness. HEAD, EYES, EARS, NOSE AND THROAT: No change in vision. No ear pain or discharge. No sore throat. GASTROINTESTINAL: No nausea, vomiting, diarrhea or constipation. GENITOURINARY: No dysuria, frequency, or change in urination. CARDIOVASCULAR: No chest pain or shortness of breath. RESPIRATORY: No cough, wheezing, or hemoptysis. MUSCULOSKELETAL: +back pain. +neck pain. SKIN: No rash NEUROLOGIC: No headache, vertigo, loss of consciousness, or change in strength/ sensation. ENDOCRINE: No increased thirst. No abnormal weight change. HEMATOLOGIC/LYMPHATIC: No anemia, easy bleeding, or history of blood clots. ALLERGIC/IMMUNOLOGIC: No hives or skin allergy. <Aster Morales - Last Filed: 05/19/17 17:34> *Physical Exam - Vital Signs Last Vital Signs Temp Pulse Resp BP Pulse Ox 98 F 85 18 155/88 100 05/19/17 16:39 05/19/17 16:39 05/19/17 16:39 05/19/17 16:39 05/19/17 16:39 <Mayr Earl - Last Filed: 05/19/17 17:31> - Vital Signs Last Vital Signs Temp Pulse Resp BP Pulse Ox 98 F 85 18 155/88 100 05/19/17 16:39 05/19/17 16:39 05/19/17 16:39 05/19/17 16:39 05/19/17 16:39 - Physical Exam Comments: 05/19/17 17:28 GENERAL: Anxious-appearing. Awake, alert, and fully oriented. HEAD: No signs of trauma EYES: PERRLA, EOMI, sclera anicteric, conjunctiva clear ENT: Auricles normal inspection, nares patent, Moist mucosa NECK: Limited ROM, supple, no lymphadenopathy, JVD, or masses LUNGS: Breath sounds equal, clear to auscultation bilaterally. No wheezes, and no crackles HEART: Regular rate and rhythm, normal S1 and S2, no murmurs, rubs or gallops ABDOMEN: Soft, nontender, normoactive bowel sounds. No guarding, no rebound. No masses EXTREMITIES: 5/5 strength in upper extremities. Sensation intact. Normal range of motion, no edema. No clubbing or cyanosis. No cords, erythema, or tenderness NEUROLOGICAL: Normal speech SKIN: Warm, Dry, normal turgor, no rashes or lesions noted. <Aster Morales - Last Filed: 05/19/17 17:34> Medical Decision Making - Medical Decision Making 05/19/17 17:13 56 yo male with h/o ankylosing spondylitis, followed by retail wireless associate, here today c/o back pain, neck pain. new new weakness or numbness. has been taking gabapentin, and muscle relaxers were not working (alleric to skelaxin and flexaril) has appointment tomorrow to get his moe injection. on exam awake alert. lungs clear. strength normal and sensation intact. plan nsaids. follow up tomorrow with rheumatoloist. 05/19/17 17:31 pt declined toradol, percocet and valium in ed. will like to go home and followup tomorrow. <Mary Earl - Last Filed: 05/19/17 17:31> *DC/Admit/Observation/Transfer - Discharge Dispostion Admit: No <Mary Earl - Last Filed: 05/19/17 17:31> - Attestations Scribe Attestion: 05/19/17 17:34 Documentation prepared by Aster Morales, acting as director biomedical engineering for Mary Earl MD. <Aster Morales - Last Filed: 05/19/17 17:34> Diagnosis at time of Disposition: Cervical paraspinal muscle spasm - Discharge Dispostion Disposition: HOME Condition at time of disposition: Improved - Referrals Referrals: Steven Vasquez MD [Staff Physician] - - Patient Instructions Printed Discharge Instructions: Torticollis Additional Instructions: you should follow up your orthopedist or retail wireless associate tomorrow. return for any weakness numbness or any concerns.
== END 2017-05-19 17:37 | disposition home or self-care (01) ==
LOC: FER 16:38
DX: M62.838 Other muscle spasm (principal); M45.9 Ankylosing spondylitis of unspecified sites in spine; F41.9 Anxiety disorder, unspecified; K21.9 Gastro-esophageal reflux disease without esophagitis
CPT/HCPCS: 99281-25

== ENCOUNTER 2017-05-29 15:50 | Emergency (ER) | payer OTHER ==
[2017-05-29 15:56] VITALS: BP 126/72; PULSE 90; TEMP 98.5; BMI 25.0
[2017-05-29] MEDS ORDERED: diphenhydrAMINE HCL 25 MG CAPSULE (FP) PO ONE ×2 (16:32→16:35)
--- NOTE | 2017-05-29 16:33 | PDOC ---
History of Present Illness - General History Source: Patient, Old Records Exam Limitations: No Limitations <Yovani Lucio - Last Filed: 05/29/17 16:33> - General History Source: Patient Exam Limitations: No Limitations - History of Present Illness Initial Comments: 05/29/17 16:55 The patient is a 56-year-old male, with a significant past medical history of ankylosing spondylitis, chronic neck pain, back pain, and anxiety, who presents to the ED for chronic neck pain. Patient believes that his symptoms are being caused by nerve pain that he has been experiencing for the past 3 weeks. He has been visiting his Surgery Scheduling Coordinator for the pain for which he was prescribed gabapentin. He has been taking the medication intermittently over the past few weeks since he was not sure if the medication was causing him to develop more pain and neck stiffness. Pt is also taking tizanidine 2 mg every 8 hours with relief of his neck pain. He reports taking benztropine in the past which also improved his neck pain. He denies having any other injuries or symptoms. <Sruthi Kidd - Last Filed: 05/29/17 16:59> - General Chief Complaint: Pain Stated Complaint: BACK, NECK PAIN Time Seen by Provider: 05/29/17 15:52 Past History - Past Medical History Anemia: No Asthma: No Cancer: No Cardiac Disorders: No CVA: No COPD: No CHF: No Dementia: No Diabetes: No GI Disorders: No Disorders: Yes (GERD) HTN: No Hypercholesterolemia: No Liver Disease: No Psychiatric Problems: Yes (anxiety) Seizures: No Thyroid Disease: No - Surgical History Abdominal Surgery: Yes (HERNIA REPAIR) - Immunization History Immunization Up to Date: Yes - Suicide/Smoking/Psychosocial Hx Smoking Status: No Smoking History: Never smoked Have you smoked in the past 12 months: No Number of Cigarettes Smoked Daily: 0 Information on smoking cessation initiated: No Hx Alcohol Use: No Drug/Substance Use Hx: No Substance Use Type: Prescribed Hx Substance Use Treatment: No <Yovani Lucio - Last Filed: 05/29/17 16:33> <Sruthi Kidd - Last Filed: 05/29/17 16:59> - Past Medical History Allergies/Adverse Reactions: Allergies Allergy/AdvReac Type Severity Reaction Status Date / Time Penicillins Allergy Intermediate Verified 05/29/17 15:51 clindamycin Allergy Verified 05/29/17 15:51 codeine phosphate Allergy Verified 05/29/17 15:51 [From Tylenol-Codeine] cyclobenzaprine HCl Allergy Verified 05/29/17 15:51 [From Flexeril] fluoxetine HCl [From Prozac] Allergy Verified 05/29/17 15:51 metaxalone [From Skelaxin] Allergy Verified 05/29/17 15:51 oxycodone HCl [From Percocet] Allergy Verified 05/29/17 15:51 aspirin AdvReac Verified 05/29/17 15:51 Home Medications: Ambulatory Orders Celecoxib [Celebrex] 200 mg PO DAILY 06/04/15 Lorazepam [Ativan] 1 mg PO BID 11/09/16 Quetiapine Fumarate [Seroquel -] 50 mg PO HS 12/06/16 Folic Acid 1 mg PO ASDIR 12/22/16 Methotrexate [Mexate -] 2.5 mg PO Q7D 12/22/16 Gabapentin [Neurontin -] 300 mg PO HS 05/19/17 Tizanidine HCl 2 mg PO TID 05/19/17 Review of Systems - Review of Systems Able to Perform ROS?: Yes Comments:: 05/29/17 16:56 GENERAL/CONSTITUTIONAL: No fever or chills. No weakness. HEAD, EYES, EARS, NOSE AND THROAT: No change in vision. No ear pain or discharge. No sore throat. CARDIOVASCULAR: No chest pain or shortness of breath. RESPIRATORY: No cough, wheezing, or hemoptysis. SKIN: No rash GASTROINTESTINAL: No nausea, vomiting, diarrhea or constipation. GENITOURINARY: No dysuria, frequency, or change in urination. MUSCULOSKELETAL: (+)chronic neck pain. No joint swelling or pain. NEUROLOGIC: No headache, vertigo, loss of consciousness, or change in strength/ sensation. ENDOCRINE: No increased thirst. No abnormal weight change. HEMATOLOGIC/LYMPHATIC: No anemia, easy bleeding, or history of blood clots. ALLERGIC/IMMUNOLOGIC: No hives or skin allergy. <Sruthi Kidd - Last Filed: 05/29/17 16:59> *Physical Exam - Vital Signs Last Vital Signs Temp Pulse Resp BP Pulse Ox 98.5 F 90 18 126/72 96 05/29/17 15:50 05/29/17 15:50 05/29/17 15:50 05/29/17 15:50 05/29/17 15:50 <Yovani Lucio - Last Filed: 05/29/17 16:33> - Vital Signs Last Vital Signs Temp Pulse Resp BP Pulse Ox 98.5 F 90 18 126/72 96 05/29/17 15:50 05/29/17 15:50 05/29/17 15:50 05/29/17 15:50 05/29/17 15:50 - Physical Exam Comments: 05/29/17 16:57 GENERAL: Awake, alert, and fully oriented, in no acute distress HEAD: No signs of trauma ENT: Auricles normal inspection, hearing grossly normal, nares patent, oropharynx clear EYES: PERRLA, EOMI, sclera anicteric, conjunctiva clear without exudates. Moist mucosa. MSK:(+)Chronic cervical spine tenderness and bilateral paracervical muscle tenderness. NECK: Normal ROM, supple, no lymphadenopathy, JVD, or masses SKIN: Warm, Dry, normal turgor, no rashes or lesions noted <Sruthi Kidd - Last Filed: 05/29/17 16:59> ED Treatment Course - Medications Given in the ED: ED Medications Discontinued Medications Generic Name Dose Route Start Last Admin Trade Name Freq PRN Reason Stop Dose Admin Diphenhydramine HCl 25 mg 05/29/17 16:32 05/29/17 16:35 Benadryl - PO 05/29/17 16:33 25 mg ONCE ONE Administration <Sruthi Kidd - Last Filed: 05/29/17 16:59> Medical Decision Making - Medical Decision Making 05/29/17 16:37 A portion of this note was documented by scribe services under my direction. I have reviewed the details of the note, within reason, and agree with the documentation with the following case summary and management plan written by me. Patient treated in the ED. Nursing notes are reviewed and incorporated into the medical decision-making. Vital signs reviewed. Vital Signs Temp Pulse Resp BP Pulse Ox 98.5 F 90 18 126/72 96 05/29/17 15:50 05/29/17 15:50 05/29/17 15:50 05/29/17 15:50 05/29/17 15:50 56 year old male with Past medical history of ankylosing spondylitis, chronic neck pain and back pain, anxiety presents to the emergency department for acute on chronic neck pain. Patient reports that he feels like the symptoms are secondary to neuropathic pain that he's been having for the last several weeks. He has a fitness attendant that has been managing it with gabapentin which he is intermittently adherent to. The patient has been not taking it because he isn't sure if the gabapentin is causing him side effects such as "more painful. "He is denies any other injuries or pain. The patient reports that when he takes tizanidine, which she is currently taking 2 mg every 8 hours, that it improves his neck pain. He reported in the past that benztropine helped secondary to his psychiatric medications. He is requesting a medication like benztropine. The patient likely has chronic neck pain that requires outpatient management. I advised that I may not be able to do benztropine but can do a dose of Benadryl. There is no evidence of torticollis at this time. I advised patient that he would benefit from follow-up with his neurologist and fitness attendant. The patient states that he agrees that he will follow up with his doctors. The patient is not requesting any pain medications at this time. He simply wants to trial Benadryl. We'll have the patient follow-up with his doctors. Discharge diagnosis: Chronic neck pain I discussed the physical exam findings, ancillary test results and final diagnoses with the patient. I answered all of the patient's questions. The patient was satisfied with the care received and felt comfortable with the discharge plan and treatment plan. The patient will call their primary care physician within 24 hours to arrange follow-up and will return to the Emergency Department with any new, persistant or worsening symptoms. <Yovani Lucio - Last Filed: 05/29/17 16:33> *DC/Admit/Observation/Transfer - Discharge Dispostion Admit: No <Yovani Lucio - Last Filed: 05/29/17 16:33> - Attestations Scribe Attestion: 05/29/17 16:59 Documentation prepared by Sruthi Kidd, acting as medical research assistant for Yovani Lucio MD. <Sruthi Kidd - Last Filed: 05/29/17 16:59> Diagnosis at time of Disposition: Neck pain - Discharge Dispostion Disposition: HOME Condition at time of disposition: Stable - Referrals Referrals: Eros Gómez MD [Primary Care Provider] - - Patient Instructions Printed Discharge Instructions: DI for Chronic Neck Pain Additional Instructions: Please follow up with your appointments. Call and schedule an appointment with your neurologist and fitness attendant. - Post Discharge Activity
== END 2017-05-29 16:40 | disposition home or self-care (01) ==
LOC: FER 15:50
DX: M54.2 Cervicalgia (principal); G89.29 Other chronic pain; F41.9 Anxiety disorder, unspecified; K21.9 Gastro-esophageal reflux disease without esophagitis
CPT/HCPCS: 99283-25

== ENCOUNTER 2017-06-10 14:05 | Emergency (ER) | payer OTHER ==
[2017-06-10 14:22] VITALS: BP 140/80; PULSE 89; TEMP 98.8; BMI 28.1
--- NOTE | 2017-06-10 14:32 | PDOC ---
History of Present Illness - General Chief Complaint: Back Pain Stated Complaint: back pain Time Seen by Provider: 06/10/17 14:06 - History of Present Illness Initial Comments: 06/10/17 14:20 56 M with h/o ankylosing spondylitis, anxiety, presenting to ER with acute on chronic back and neck pain. Pt states that over the past few weeks, his muscle relaxers have not been working as well. He takes his Gabapentin with some relief of his pain, but the tizanidine has stopped working. He denies any recent trauma or falls. Denies any new numbness/tingling/weakness. He states that he feels like his spine is fusing. Pt has an appointment with an orthopedic surgeon as well as neurologist in the next month. Pt requests that I call Dr. Parra, his cleat layer, regarding what regimen to start him on. Past History - Past Medical History Allergies/Adverse Reactions: Allergies Allergy/AdvReac Type Severity Reaction Status Date / Time Penicillins Allergy Intermediate Verified 06/10/17 14:09 clindamycin Allergy Verified 06/10/17 14:09 codeine phosphate Allergy Verified 06/10/17 14:09 [From Tylenol-Codeine] cyclobenzaprine HCl Allergy Verified 06/10/17 14:09 [From Flexeril] fluoxetine HCl [From Prozac] Allergy Verified 06/10/17 14:09 metaxalone [From Skelaxin] Allergy Verified 06/10/17 14:09 oxycodone HCl [From Percocet] Allergy Verified 06/10/17 14:09 aspirin AdvReac Verified 06/10/17 14:09 Home Medications: Ambulatory Orders Celecoxib [Celebrex] 200 mg PO DAILY 06/04/15 Lorazepam [Ativan] 1 mg PO BID 11/09/16 Quetiapine Fumarate [Seroquel -] 50 mg PO HS 12/06/16 Folic Acid 1 mg PO ASDIR 12/22/16 Methotrexate [Mexate -] 2.5 mg PO Q7D 12/22/16 Gabapentin [Neurontin -] 300 mg PO HS 05/19/17 Tizanidine HCl 2 mg PO TID 05/19/17 Baclofen 5 mg PO TID #45 tablet 06/10/17 Anemia: No Asthma: No Cancer: No Cardiac Disorders: No CVA: No COPD: No CHF: No Dementia: No Diabetes: No GI Disorders: No Disorders: Yes (GERD) HTN: No Hypercholesterolemia: No Liver Disease: No Psychiatric Problems: Yes (anxiety) Seizures: No Thyroid Disease: No - Surgical History Abdominal Surgery: Yes (HERNIA REPAIR) - Immunization History Immunization Up to Date: Yes - Suicide/Smoking/Psychosocial Hx Smoking Status: No Smoking History: Never smoked Have you smoked in the past 12 months: No Number of Cigarettes Smoked Daily: 0 Hx Alcohol Use: No Drug/Substance Use Hx: No Substance Use Type: Prescribed Hx Substance Use Treatment: No Review of Systems - Review of Systems Comments:: 06/10/17 14:33 "GENERAL/CONSTITUTIONAL: No fever or chills. No weakness. HEAD, EYES, EARS, NOSE AND THROAT: No change in vision. No ear pain or discharge. No sore throat. CARDIOVASCULAR: No chest pain or shortness of breath. RESPIRATORY: No cough, wheezing, or hemoptysis. GASTROINTESTINAL: No nausea, vomiting, diarrhea or constipation. GENITOURINARY: No dysuria, frequency, or change in urination. MUSCULOSKELETAL: + neck and back pain SKIN: No rash NEUROLOGIC: No headache, vertigo, loss of consciousness, or change in strength/ sensation. ENDOCRINE: No increased thirst. No abnormal weight change. HEMATOLOGIC/LYMPHATIC: No anemia, easy bleeding, or history of blood clots. ALLERGIC/IMMUNOLOGIC: No hives or skin allergy. " *Physical Exam - Physical Exam Comments: 06/10/17 14:33 "GENERAL: Awake, alert, and fully oriented, in no acute distress HEAD: No signs of trauma EYES: PERRLA, EOMI, sclera anicteric, conjunctiva clear ENT: Auricles normal inspection, hearing grossly normal, nares patent, oropharynx clear without exudates. Moist mucosa NECK: Nontender, no stepoffs, Normal ROM, supple, no lymphadenopathy, JVD, or masses LUNGS: Breath sounds equal, clear to auscultation bilaterally. No wheezes, and no crackles HEART: Regular rate and rhythm, normal S1 and S2, no murmurs, rubs or gallops ABDOMEN: Soft, nontender, normoactive bowel sounds. No guarding, no rebound. No masses BACK: mild lumbar paraspinal tenderness, no stepoffs EXTREMITIES: Normal range of motion, no edema. No clubbing or cyanosis. No cords, erythema, or tenderness NEUROLOGICAL: Cranial nerves II through XII intact. 5/5 strength and sensation in all extremities, Normal speech, normal gait SKIN: Warm, Dry, normal turgor, no rashes or lesions noted. " Medical Decision Making - Medical Decision Making 06/10/17 14:34 56 M with ankylosing spondylitis presenting with acute on chronic neck and back pain. Likely worsening of ankylosing spondylitis vs anxiety. Pt with no trauma to necessitate imaging at this time. I spoke with Dr. Parra, who states that there is likely a psychiatric component to pt's pain. Pt has been on several pain regimens and recently decided to stop going to his psychologist. She recommends starting pt on Baclofen if his tizanidine does not work any longer. Also states that toradol has worked in the past. - Toradol 15mg IM - Baclofen *DC/Admit/Observation/Transfer Diagnosis at time of Disposition: Ankylosing spondylitis - Discharge Dispostion Disposition: HOME - Referrals - Patient Instructions Additional Instructions: sign hanger supervisor your Baclofen prescription and take it as prescribed. Do not take any more Tizanidine. Follow up with Dr. Parra as scheduled. If you experience worsening symptoms, numbness, weakness, incontinence, or any other concerning symptoms, return to the ER immediately. - Post Discharge Activity - Attestations Physician Attestion: 06/10/17 14:40 I, Dr. Rehan Le MD, attest that this document has been prepared under my direction and personally reviewed by me in its entirety. I further attest, that it accurately reflects all work, treatment, procedures and medical decision -making performed by me.
[2017-06-10] MEDS ORDERED: KETOROLAC TROMETHAMINE 15 MG/ML VIAL IM ONE (14:36)
[2017-06-10] MEDS ORDERED: BACLOFEN 10 MG TABLET (FP) PO ONE (14:36)
[2017-06-10] MEDS ORDERED: KETOROLAC TROMETHAMINE 15 MG/ML VIAL ONE (14:39)
== END 2017-06-10 14:59 | disposition home or self-care (01) ==
LOC: FER 14:05
PROC: 3E0233Z Introduction of Anti-inflammatory into Muscle, Percutaneous Approach (ICD-10-PCS; principal; 2017-06-10)
DX: M45.9 Ankylosing spondylitis of unspecified sites in spine (principal); F41.9 Anxiety disorder, unspecified; K21.9 Gastro-esophageal reflux disease without esophagitis
CPT/HCPCS: 99281-25

== ENCOUNTER 2017-06-13 20:38 | Emergency (ER) | payer OTHER ==
--- NOTE | 2017-06-13 20:46 | PDOC ---
History of Present Illness - General History Source: Patient Exam Limitations: No Limitations - History of Present Illness Initial Comments: 06/13/17 21:28 The patient is a 56 year old male, with a significant past medical history of ankylosing spondylitis, chronic neck pain, back pain, and anxiety, who presents to the emergency department with, a stiff neck. He reports he went to the ED recently and was prescribed Baclofen which caused him to have a muscle spasm. He reports he has an appointment with his mixer runner, Dr. Parra, in two weeks. He denies any recent fevers, chills, headache or dizziness. He denies any recent nausea, vomit, diarrhea or constipation. He denies any recent chest pain or shortness of breath. He denies any recent dysuria, frequency, urgency or hematuria. PAST MEDICAL HISTORY: ankylosing spondylitis, chronic neck pain, back pain, and anxiety PAST SURGICAL HISTORY: no significant history FAMILY HISTORY: no pertinent history SOCIAL HISTORY: Pt lives with family and is employed. MEDICATIONS: reviewed ALLERGIES: As per nursing notes General: No fevers or chills, no weakness, no weight loss HEENT: No change in vision. No sore throat,. No ear pain CardioVascular: No chest pain or shortness of breath Respiratory:No cough, or wheezing. Gastrointestinal: no nausea, vomiting, diarrhea or constipation, No rectal bleeding Genitourinary: No dysuria, hematuria, or frequency Musculoskeletal: +Neck pain. No joint pain or swelling Neurologic: No headache, vertigo, dizziness or loss of consciousness Psychiatric: nor depression Skin: No rashes or easy bruising Endocrine: no increased thirst or abnormal weight change Allergic: no skin or latex allergy All other systems reviewed and normal GENERAL: The patient is awake, alert, and fully oriented, in no acute distress. HEAD: Normal with no signs of trauma. NECK: +Tenderness and spasm of right lateral neck and shoulder. EYES: Pupils equal, round and reactive to light, extraocular movements intact, sclera anicteric, conjunctiva clear. EXTREMITIES: Normal range of motion, no edema. NEUROLOGICAL: Normal speech, normal gait. PSYCH: Normal mood, normal affect. SKIN: Warm, Dry, normal turgor, no rashes or lesions noted. <Roseanna Loco - Last Filed: 06/13/17 21:28> - General History Source: Patient Exam Limitations: No Limitations - History of Present Illness Initial Comments: 06/13/17 22:08 A portion of this note was documented by scribe services under my direction. I have reviewed the details of the note, within reason, and agree with the documentation. The case summary and management plan written by me. Assessment and plan: This is a 56-year-old male who comes in complaining of lateral neck spasm and discomfort. Patient was started on a new anti-spasmatic medication and he says it is making it worse. Patient wants to know if it's okay to stop the new medication and go back to his other medication. Patient was reassured that he could stop the new medication and go back to his other one which worked better. Patient also has an appointment with his primary care doctor and his neurologist for the after the new year. Patient was told he needs to make sure he keeps those appointments and discuss medications with them. Patient discharged home. <Priyank Dyer I - Last Filed: 06/13/17 22:09> - General Chief Complaint: Chronic pain Stated Complaint: STIFFNESS TO NECK Time Seen by Provider: 06/13/17 20:44 Past History <Roseanna Loco - Last Filed: 06/13/17 21:28> - Past Medical History Anemia: No Asthma: No Cancer: No Cardiac Disorders: No CVA: No COPD: No CHF: No Dementia: No Diabetes: No GI Disorders: No Disorders: Yes (GERD) HTN: No Hypercholesterolemia: No Liver Disease: No Psychiatric Problems: Yes (anxiety) Seizures: No Thyroid Disease: No - Surgical History Abdominal Surgery: Yes (HERNIA REPAIR) - Immunization History Immunization Up to Date: Yes - Suicide/Smoking/Psychosocial Hx Smoking Status: No Smoking History: Never smoked Have you smoked in the past 12 months: No Number of Cigarettes Smoked Daily: 0 Hx Alcohol Use: No Drug/Substance Use Hx: No Substance Use Type: Prescribed Hx Substance Use Treatment: No <Priyank Dyer I - Last Filed: 06/13/17 22:09> - Past Medical History Allergies/Adverse Reactions: Allergies Allergy/AdvReac Type Severity Reaction Status Date / Time Penicillins Allergy Intermediate Verified 06/13/17 20:40 clindamycin Allergy Verified 06/13/17 20:40 codeine phosphate Allergy Verified 06/13/17 20:40 [From Tylenol-Codeine] cyclobenzaprine HCl Allergy Verified 06/13/17 20:40 [From Flexeril] fluoxetine HCl [From Prozac] Allergy Verified 06/13/17 20:40 metaxalone [From Skelaxin] Allergy Verified 06/13/17 20:40 oxycodone HCl [From Percocet] Allergy Verified 06/13/17 20:40 aspirin AdvReac Verified 06/13/17 20:40 Home Medications: Ambulatory Orders Celecoxib [Celebrex] 200 mg PO DAILY 06/04/15 Lorazepam [Ativan] 1 mg PO BID 11/09/16 Quetiapine Fumarate [Seroquel -] 50 mg PO HS 12/06/16 Folic Acid 1 mg PO ASDIR 12/22/16 Methotrexate [Mexate -] 2.5 mg PO Q7D 12/22/16 Gabapentin [Neurontin -] 300 mg PO HS 05/19/17 Tizanidine HCl 2 mg PO TID 05/19/17 Baclofen 5 mg PO TID #45 tablet 06/10/17 *Physical Exam - Vital Signs Last Vital Signs Temp Pulse Resp BP Pulse Ox 97.8 F 88 18 140/88 98 06/13/17 20:42 06/13/17 20:42 06/13/17 20:42 06/13/17 20:42 06/13/17 20:42 <Roseanna Loco - Last Filed: 06/13/17 21:28> *DC/Admit/Observation/Transfer - Attestations Scribe Attestion: 06/13/17 21:28 Documentation prepared by Roseanna Loco, acting as medical practice assistant for Priyank Dyer MD. <Roseanna Loco - Last Filed: 06/13/17 21:28> <Priyank Dyer I - Last Filed: 06/13/17 22:09> Diagnosis at time of Disposition: Neck pain, Neck stiffness, Medication adverse effect - Discharge Dispostion Disposition: HOME Condition at time of disposition: Good - Patient Instructions Additional Instructions: Stop the baclofen and restart the other medication tizanadine in addition to that you can also take Benadryl before bed for the side effects. Make sure you keep your appointments with your doctors in early June. Return to the emergency department immediately with ANY new, persistent or worsening symptoms. Continue any medications as previously prescribed by your physician. You should follow up with your primary doctor as soon as possible regarding today's emergency department visit. . Please make sure your doctor reviews the results of your emergency evaluation. Thank you for coming to the Emergency Department today for your care. It was a pleasure to see you today. Please note that your evaluation is INCOMPLETE until you follow-up with your doctor.
[2017-06-13 20:47] VITALS: BP 140/88; PULSE 88; TEMP 97.8; BMI 25.0
== END 2017-06-13 21:30 | disposition home or self-care (01) ==
LOC: FER 20:38
DX: M45.9 Ankylosing spondylitis of unspecified sites in spine (principal); G89.29 Other chronic pain; F41.9 Anxiety disorder, unspecified
CPT/HCPCS: 99281-25

== ENCOUNTER 2017-06-14 13:25 | Emergency (ER) | payer OTHER ==
[2017-06-14 13:35] VITALS: BP 135/88; PULSE 93; TEMP 97.5; BMI 24.9
[2017-06-14] MEDS ORDERED: KETOROLAC TROMETHAMINE 15 MG/ML VIAL IM ONE (13:52)
--- NOTE | 2017-06-14 13:52 | PDOC ---
History of Present Illness - General Chief Complaint: Pain Stated Complaint: NECK PAIN Time Seen by Provider: 06/14/17 13:27 History Source: Patient Exam Limitations: No Limitations - History of Present Illness Initial Comments: 06/14/17 14:07 56 year old male with past medical history of ankylosing spondylitis, chronic neck pain, anxiety returns back to the ED for persistent neck pain. The patient here states that he continues to have persistent neck pain. The patient was here twice in the last week. The patient is known to me from prior visits. The patient is stating that he has persistent neck pain and is requesting a switch of his muscle relaxants to flexeril. Pt states that he has persistent neck spasm that is chronic. No new changes. Past History - Past Medical History Allergies/Adverse Reactions: Allergies Allergy/AdvReac Type Severity Reaction Status Date / Time Penicillins Allergy Intermediate Verified 06/14/17 13:27 clindamycin Allergy Verified 06/14/17 13:27 codeine phosphate Allergy Verified 06/14/17 13:27 [From Tylenol-Codeine] cyclobenzaprine HCl Allergy Verified 06/14/17 13:27 [From Flexeril] fluoxetine HCl [From Prozac] Allergy Verified 06/14/17 13:27 metaxalone [From Skelaxin] Allergy Verified 06/14/17 13:27 oxycodone HCl [From Percocet] Allergy Verified 06/14/17 13:27 aspirin AdvReac Verified 06/14/17 13:27 Home Medications: Ambulatory Orders Celecoxib [Celebrex] 200 mg PO DAILY 06/04/15 Lorazepam [Ativan] 1 mg PO BID 11/09/16 Quetiapine Fumarate [Seroquel -] 50 mg PO HS 12/06/16 Folic Acid 1 mg PO ASDIR 12/22/16 Methotrexate [Mexate -] 2.5 mg PO Q7D 12/22/16 Gabapentin [Neurontin -] 300 mg PO HS 05/19/17 Tizanidine HCl 2 mg PO TID 05/19/17 Anemia: No Asthma: No Cancer: No Cardiac Disorders: No CVA: No COPD: No CHF: No Dementia: No Diabetes: No GI Disorders: No Disorders: Yes (GERD) HTN: No Hypercholesterolemia: No Liver Disease: No Psychiatric Problems: Yes (anxiety) Seizures: No Thyroid Disease: No Other medical history: NECK, BACK PAINS - Surgical History Abdominal Surgery: Yes (HERNIA REPAIR) - Immunization History Immunization Up to Date: Yes - Suicide/Smoking/Psychosocial Hx Smoking Status: No Smoking History: Never smoked Have you smoked in the past 12 months: No Number of Cigarettes Smoked Daily: 0 Information on smoking cessation initiated: No Hx Alcohol Use: No Drug/Substance Use Hx: No Substance Use Type: Prescribed Hx Substance Use Treatment: No Review of Systems - Review of Systems Able to Perform ROS?: Yes Comments:: 06/14/17 14:09 GENERAL/CONSTITUTIONAL: No fever, weakness. HEAD, EYES, EARS, NOSE AND THROAT: No change in vision. No ear pain or discharge. No sore throat. + neck spasm CARDIOVASCULAR: No chest pain or shortness of breath. RESPIRATORY: No cough, wheezing, or hemoptysis. GASTROINTESTINAL: No abdominal pain, nausea, vomiting, diarrhea, or decreased PO intolerance. GENITOURINARY: No dysuria, frequency, or change in urination. MUSCULOSKELETAL: No joint or muscle swelling or pain. No neck or back pain. SKIN: No rash NEUROLOGIC: No headache, vertigo, loss of consciousness, or change in strength/ sensation. ENDOCRINE: No increased thirst. No abnormal weight change. HEMATOLOGIC/LYMPHATIC: No anemia, easy bleeding, or history of blood clots. ALLERGIC/IMMUNOLOGIC: No hives or skin allergy. *Physical Exam - Vital Signs Last Vital Signs Temp Pulse Resp BP Pulse Ox 97.5 F L 93 H 18 135/88 98 06/14/17 13:25 06/14/17 13:25 06/14/17 13:25 06/14/17 13:25 06/14/17 13:25 - Physical Exam Comments: 06/14/17 14:09 GENERAL: Awake, alert, and fully oriented, in no acute distress. HEAD: No signs of trauma EYES: PERRLA, EOMI, sclera anicteric, conjunctiva clear ENT: Auricles normal inspection, hearing grossly normal, nares patent, oropharynx clear without exudates. NECK: Normal ROM, supple. Bilateral paracervical spine tenderness (chronic) EXTREMITIES: Normal range of motion, no edema. No clubbing or cyanosis. No cords, erythema, or tenderness NEUROLOGICAL: Cranial nerves II through XII grossly intact. Normal speech, normal gait SKIN: Warm, Dry, normal turgor, no rashes or lesions noted. Medical Decision Making - Medical Decision Making 06/14/17 14:10 Vital Signs Temp Pulse Resp BP Pulse Ox 97.5 F L 93 H 18 135/88 98 06/14/17 13:25 06/14/17 13:25 06/14/17 13:25 06/14/17 13:25 06/14/17 13:25 This is chronic pain. The patient likely has anxiety components as well (as noted in my previous visit as well). The patient is asking me to switch his entire regiment of pain medications, which I had informed him I did not feel comfortable doing. I instead had given him toradol. I strongly advised that the patient should follow up with his hot box operator and discuss changes with his medications with his doctor instead of asking the ER to change his medication regiment. I discussed the physical exam findings, ancillary test results and final diagnoses with the patient. I answered all of the patient's questions. The patient was satisfied with the care received and felt comfortable with the discharge plan and treatment plan. The patient will call their primary care physician within 24 hours to arrange follow-up and will return to the Emergency Department with any new, persistant or worsening symptoms. *DC/Admit/Observation/Transfer Diagnosis at time of Disposition: Neck muscle spasm - Discharge Dispostion Disposition: HOME Condition at time of disposition: Stable Admit: No - Referrals Referrals: Eros Gómez MD [Primary Care Provider] - - Patient Instructions Printed Discharge Instructions: DI for Chronic Neck Pain Additional Instructions: It is very important that you follow up with your doctors on July 06. Continue taking your medications. - Post Discharge Activity
[2017-06-14] MEDS ORDERED: KETOROLAC TROMETHAMINE 15 MG/ML VIAL ONE (14:00)
== END 2017-06-14 14:10 | disposition home or self-care (01) ==
LOC: FER 13:25
PROC: 3E0233Z Introduction of Anti-inflammatory into Muscle, Percutaneous Approach (ICD-10-PCS; principal; 2017-06-14)
DX: M62.838 Other muscle spasm (principal); G89.29 Other chronic pain; M45.9 Ankylosing spondylitis of unspecified sites in spine; K21.9 Gastro-esophageal reflux disease without esophagitis; F41.9 Anxiety disorder, unspecified
CPT/HCPCS: 99283-25

== ENCOUNTER 2017-06-14 20:00 | Emergency (ER) | payer OTHER ==
[2017-06-14 20:06] VITALS: BP 141/78; PULSE 97; TEMP 98.2; BMI 24.9
--- NOTE | 2017-06-14 20:10 | PDOC ---
History of Present Illness - General Chief Complaint: RX Refill Stated Complaint: MEDICATION REFILL Time Seen by Provider: 06/14/17 20:04 - History of Present Illness Initial Comments: This 56-year-old man with a past medical history of ankylosing spondylitis, chronic neck and back pain, anxiety who has been seen in this ER twice before in the last 48 hours presents with a request for medication refill. When he was seen here 2 days ago, he had expressed the belief that the anti-spasmodic medication he recently had been prescribed (baclofen) was actually worsening his symptoms of muscle spasm. Subsequent to that, remainder of the baclofen was discarded. Since then, he discussed the issue with his finished stock inspector and realized that he needed to keep taking the baclofen. He presents to request a refill of the baclofen. Patient states that his finished stock inspector has written the prescription as baclofen 10 mg 3 times a day but he was advised by his finished stock inspector actually halve the tablets, so that he is taking only 5 mg 3 times a day. Otherwise, the patient has no new symptoms and denies worsening pain/trauma/ fever Past History - Past Medical History Allergies/Adverse Reactions: Allergies Allergy/AdvReac Type Severity Reaction Status Date / Time Penicillins Allergy Intermediate Verified 06/14/17 13:27 clindamycin Allergy Verified 06/14/17 13:27 codeine phosphate Allergy Verified 06/14/17 13:27 [From Tylenol-Codeine] cyclobenzaprine HCl Allergy Verified 06/14/17 13:27 [From Flexeril] fluoxetine HCl [From Prozac] Allergy Verified 06/14/17 13:27 metaxalone [From Skelaxin] Allergy Verified 06/14/17 13:27 oxycodone HCl [From Percocet] Allergy Verified 06/14/17 13:27 aspirin AdvReac Verified 06/14/17 13:27 Home Medications: Ambulatory Orders Celecoxib [Celebrex] 200 mg PO DAILY 06/04/15 Lorazepam [Ativan] 1 mg PO BID 11/09/16 Quetiapine Fumarate [Seroquel -] 50 mg PO HS 12/06/16 Folic Acid 1 mg PO ASDIR 12/22/16 Methotrexate [Mexate -] 2.5 mg PO Q7D 12/22/16 Gabapentin [Neurontin -] 300 mg PO HS 05/19/17 Tizanidine HCl 2 mg PO TID 05/19/17 Baclofen [Lioresal -] 10 mg PO TID #30 tablet 06/14/17 Anemia: No Asthma: No Cancer: No Cardiac Disorders: No CVA: No COPD: No CHF: No Dementia: No Diabetes: No GI Disorders: No Disorders: Yes (GERD) HTN: No Hypercholesterolemia: No Liver Disease: No Psychiatric Problems: Yes (anxiety) Seizures: No Thyroid Disease: No - Surgical History Abdominal Surgery: Yes (HERNIA REPAIR) - Immunization History Immunization Up to Date: Yes - Suicide/Smoking/Psychosocial Hx Smoking Status: No Smoking History: Never smoked Have you smoked in the past 12 months: No Number of Cigarettes Smoked Daily: 0 Hx Alcohol Use: No Drug/Substance Use Hx: No Substance Use Type: Prescribed Hx Substance Use Treatment: No Review of Systems - Review of Systems Able to Perform ROS?: Yes Comments:: 12 point review of systems is negative except for what is noted in the history of present illness *Physical Exam - Physical Exam Comments: GENERAL: Adult male, alert and oriented 3, in no acute distress HEAD: Normal with no signs of trauma. EYES: PERRLA, EOMI, sclera anicteric, conjunctiva clear. MUSCULOSKELETAL: Tenderness of bilateral paraspinal muscles of the neck; neck/ back being held rigidly SKIN: Warm, Dry, normal turgor, no rashes or lesions noted. Medical Decision Making - Medical Decision Making Refill prescription for baclofen 10 mg 3 times a day sent to patient's pharmacy Patient will have follow-up with his finished stock inspector on June 26. *DC/Admit/Observation/Transfer Diagnosis at time of Disposition: Chronic neck and back pain - Discharge Dispostion Disposition: HOME Condition at time of disposition: Stable - Prescriptions Prescriptions: Baclofen [Lioresal -] 10 mg PO TID #30 tablet - Referrals Referrals: Eros Gómez MD [Primary Care Provider] - - Patient Instructions Printed Discharge Instructions: Chronic Neck Pain Additional Instructions: continue taking medications , including baclofen, as prescribed by your doctor followup with your finished stock inspector, Jun 26, as previously scheduled return to ER if you have severe, persistent symptoms - Post Discharge Activity
== END 2017-06-14 20:19 | disposition home or self-care (01) ==
LOC: FER 20:00
DX: M45.9 Ankylosing spondylitis of unspecified sites in spine (principal); G89.29 Other chronic pain; M54.9 Dorsalgia, unspecified; F41.9 Anxiety disorder, unspecified
CPT/HCPCS: 99283-25

== ENCOUNTER 2017-07-04 13:25 | Emergency (ER) | payer OTHER ==
--- NOTE | 2017-07-04 14:18 | PDOC ---
History of Present Illness - General Chief Complaint: Chronic pain Stated Complaint: NECK & BACK PAIN Time Seen by Provider: 07/04/17 14:18 - History of Present Illness Initial Comments: 07/04/17 16:48 Chief complaint neck stiffness History of present illness: Patient with chronic stiffness due to ankylosing spondylitis, frequently visits the emergency room for Toradol injection when his pain and spasm increases. This occurred today. Usual symptoms. Review of systems: No recent fever/chills, headache, sore throat, cough, chest pain, shortness of breath, abdominal pain, nausea, vomiting, diarrhea, visual or focal neurologic symptoms, unsteadiness of gait Past medical history: Chronic musculoskeletal pain, ankylosing spondylitis, under the care of a philatelic consultant Social history: Reviewed and noncontributory Family history reviewed and noncontributory Physical exam: Alert and oriented well-developed well-nourished no acute distress cooperative HEENT normal Neck with typical spasm, no point tenderness over the vertebral bodies, limited range of motion as usual Chest clear no chest wall rib cage tenderness or deformity CV regular without murmur rub or gallop Abdomen benign Neurological C2 to 12 intact. Strength full and symmetric. No focal sensory or motor deficits. Gait stable and unimpaired Impression: Acute exacerbation of chronic neck pain, no sign of new neurologic deficit or infection Plan: Symptomatic treatment, follow-up as usual. Past History - Past Medical History Allergies/Adverse Reactions: Allergies Allergy/AdvReac Type Severity Reaction Status Date / Time Penicillins Allergy Intermediate Verified 06/14/17 13:27 clindamycin Allergy Verified 06/14/17 13:27 codeine phosphate Allergy Verified 06/14/17 13:27 [From Tylenol-Codeine] cyclobenzaprine HCl Allergy Verified 06/14/17 13:27 [From Flexeril] fluoxetine HCl [From Prozac] Allergy Verified 06/14/17 13:27 metaxalone [From Skelaxin] Allergy Verified 06/14/17 13:27 oxycodone HCl [From Percocet] Allergy Verified 06/14/17 13:27 aspirin AdvReac Verified 06/14/17 13:27 Home Medications: Ambulatory Orders Celecoxib [Celebrex] 200 mg PO BID 06/04/15 Lorazepam [Ativan] 1 mg PO BID 11/09/16 Quetiapine Fumarate [Seroquel -] 50 mg PO HS 12/06/16 Folic Acid 1 mg PO ASDIR 12/22/16 Methotrexate [Mexate -] 2.5 mg PO Q7D 12/22/16 Baclofen [Lioresal -] 10 mg PO TID #30 tablet 06/14/17 Gabapentin [Neurontin] 100 mg PO BID 07/04/17 Gabapentin [Neurontin] 300 mg PO HS 07/04/17 Anemia: No Asthma: No Cancer: No Cardiac Disorders: No CVA: No COPD: No CHF: No Dementia: No Diabetes: No GI Disorders: No Disorders: Yes (GERD) HTN: No Hypercholesterolemia: No Liver Disease: No Psychiatric Problems: Yes (anxiety) Seizures: No Thyroid Disease: No - Surgical History Abdominal Surgery: Yes (HERNIA REPAIR) - Immunization History Immunization Up to Date: Yes - Suicide/Smoking/Psychosocial Hx Smoking Status: No Smoking History: Never smoked Have you smoked in the past 12 months: No Number of Cigarettes Smoked Daily: 0 Hx Alcohol Use: No Drug/Substance Use Hx: No Substance Use Type: Prescribed Hx Substance Use Treatment: No *Physical Exam - Vital Signs Last Vital Signs Temp Pulse Resp BP Pulse Ox 98.3 F 94 H 16 129/85 96 07/04/17 13:38 07/04/17 13:38 07/04/17 13:38 07/04/17 13:38 07/04/17 13:38 Medical Decision Making - Medical Decision Making 07/04/17 16:51 Much improved after medication. Stiffness is less prominent. Patient is ambulating freely without difficulty. Fully ambulatory and in no significant pain or other distress upon discharge. *DC/Admit/Observation/Transfer Diagnosis at time of Disposition: Musculoskeletal pain - Discharge Dispostion Disposition: HOME Condition at time of disposition: Improved Admit: No - Referrals Referrals: Eros Gómez MD [Primary Care Provider] - - Patient Instructions Printed Discharge Instructions: DI for Musculoskeletal Pain Additional Instructions: Follow-up with neurologist and pain management physician as directed. - Post Discharge Activity
[2017-07-04] MEDS ORDERED: KETOROLAC TROMETHAMINE 60 MG/2 ML VIAL IM ONE (14:19)
[2017-07-04] MEDS ORDERED: hydrOXYzine PAMOATE 50 MG CAPSULE (FP) PO ONE (14:19)
[2017-07-04] MEDS ORDERED: ACETAMINOPHEN 325 MG TABLET (FP) PO ONE (14:20)
[2017-07-04 14:29] VITALS: BP 129/85; PULSE 94; TEMP 98.3; BMI 24.1
[2017-07-04] MEDS ORDERED: ACETAMINOPHEN 325 MG TABLET (FP) ONE (14:59)
[2017-07-04] MEDS ORDERED: hydrOXYzine PAMOATE 25 MG CAPSULE (FP) PO ONE (15:00)
[2017-07-04] MEDS ORDERED: KETOROLAC TROMETHAMINE 60 MG/2 ML VIAL ONE (15:00)
== END 2017-07-04 15:38 | disposition home or self-care (01) ==
LOC: FER 13:25
PROC: 3E0233Z Introduction of Anti-inflammatory into Muscle, Percutaneous Approach (ICD-10-PCS; principal; 2017-07-04)
DX: M79.1 Myalgia (principal); G89.29 Other chronic pain; M45.9 Ankylosing spondylitis of unspecified sites in spine; F41.9 Anxiety disorder, unspecified; K21.9 Gastro-esophageal reflux disease without esophagitis
CPT/HCPCS: 99282-25

== ENCOUNTER 2017-07-16 05:47 | Emergency (ER) | payer OTHER ==
[2017-07-16 05:55] VITALS: BP 133/85; PULSE 84; TEMP 98; BMI 24.1
--- NOTE | 2017-07-16 06:00 | PDOC ---
History of Present Illness - General Chief Complaint: Pain, Acute Stated Complaint: BACK AND NECK PAIN Time Seen by Provider: 07/16/17 05:59 History Source: Patient Exam Limitations: No Limitations - History of Present Illness Initial Comments: 07/16/17 06:12 This is a 56-year-old male who comes to the emergency room frequently for acute exacerbation of his chronic neck and back pain. Patient has ankylosing spondylolysis and says he was also recently diagnosed with spinal stenosis. Patient has a pain specialist but he does come to the emergency room about 2-3 times a month for Toradol shots to help with his chronic pain. Patient denies any other symptoms. Patient also did not take anything else for the pain patient says he normally takes Neurontin and Celebrex. PAST MEDICAL HISTORY: no significant history PAST SURGICAL HISTORY: no significant history FAMILY HISTORY: no pertinant history SOCIAL HISTORY: Patient lives with his family MEDICATIONS: reviewed ALLERGIES: As per nursing notes Review of Systems General: No fevers or chills, no weakness, no weight loss HEENT: No change in vision. No sore throat,. No ear pain CardioVascular: No chest pain or shortness of breath Respiratory:No cough, or wheezing. Gastrointestinal: no nausea, vomitting, diarrhea or constipation, No rectal bleeding Genitourinary: No dysuria, hematuria, or frequency Musculoskeletal: No joint or muscle pain or swelling, chronic neck and back pain Neurologic: No headache, vertigo, dizziness or loss of consciousness Psychiatric: nor depression Skin: No rashes or easy bruising Endocrine: no increased thirst or abnormal weight change Allergic: no skin or latex allergy All other systems reviewed and normal GENERAL: The patient is awake, alert, and fully oriented, in no acute distress. HEAD: Normal with no signs of trauma. NECK: There is tenderness and spasm of the posterior cervical spine and neck. There is decreased range of motion secondary to pain. EYES: Pupils equal, round and reactive to light, extraocular movements intact, sclera anicteric, conjunctiva clear. EXTREMITIES: Normal range of motion, no edema. NEUROLOGICAL: Normal speech, antalgic gait. grossly intact PSYCH: Normal mood, normal affect. SKIN: Warm, Dry, normal turgor, no rashes or lesions noted. 06:30 Patient's says his pain is improved. However he is still very anxious and is moving more comfortably. Patient's was called and she will come in and pick him up. Patient asked if he could take his Ativan for his anxiety. Patient took his own Ativan. 06:45 Patient ambulating without difficulty in the emergency room. He states he feels much better and is ready to go Past History - Past Medical History Allergies/Adverse Reactions: Allergies Allergy/AdvReac Type Severity Reaction Status Date / Time Penicillins Allergy Intermediate Verified 07/16/17 06:00 clindamycin Allergy Verified 07/16/17 06:00 codeine phosphate Allergy Verified 07/16/17 06:00 [From Tylenol-Codeine] cyclobenzaprine HCl Allergy Verified 07/16/17 06:00 [From Flexeril] fluoxetine HCl [From Prozac] Allergy Verified 07/16/17 06:00 metaxalone [From Skelaxin] Allergy Verified 07/16/17 06:00 oxycodone HCl [From Percocet] Allergy Verified 07/16/17 06:00 aspirin AdvReac Verified 07/16/17 06:00 Home Medications: Ambulatory Orders Acetaminophen [Tylenol] 1,000 mg PO DAILY 07/16/17 Celecoxib [Celebrex] 200 mg PO DAILY 07/16/17 Folic Acid 1 mg PO DAILY 07/16/17 Gabapentin [Neurontin -] 100 mg PO TID 07/16/17 Lorazepam [Ativan] 1 mg PO BID 07/16/17 Quetiapine Fumarate [Seroquel] 50 tab PO HS 07/16/17 Anemia: No Asthma: No Cancer: No Cardiac Disorders: No CVA: No COPD: No CHF: No Dementia: No Diabetes: No GI Disorders: No Disorders: Yes (GERD) HTN: No Hypercholesterolemia: No Liver Disease: No Psychiatric Problems: Yes (anxiety) Seizures: No Thyroid Disease: No Other medical history: SPINAL STENOSIS - Surgical History Abdominal Surgery: Yes (HERNIA REPAIR) - Immunization History Immunization Up to Date: Yes - Suicide/Smoking/Psychosocial Hx Smoking Status: No Smoking History: Never smoked Have you smoked in the past 12 months: No Number of Cigarettes Smoked Daily: 0 Information on smoking cessation initiated: No Hx Alcohol Use: No Drug/Substance Use Hx: No Substance Use Type: Prescribed Hx Substance Use Treatment: No *Physical Exam - Vital Signs Last Vital Signs Temp Pulse Resp BP Pulse Ox 98 F 84 18 133/85 97 07/16/17 05:48 07/16/17 05:48 07/16/17 05:48 07/16/17 05:48 07/16/17 05:48 *DC/Admit/Observation/Transfer Diagnosis at time of Disposition: Neck pain, Back pain, Neck muscle spasm, Ankylosing spondylitis - Discharge Dispostion Disposition: HOME Condition at time of disposition: Stable Admit: No - Referrals - Patient Instructions Additional Instructions: Continue to take all your medications as prescribed. Follow-up with your pain specialist, and keep your appointments with your other specialists. Return to the emergency department immediately with ANY new, persistent or worsening symptoms. Continue any medications as previously prescribed by your physician. You should follow up with your primary doctor as soon as possible regarding today's emergency department visit. . Please make sure your doctor reviews the results of your emergency evaluation. Thank you for coming to the Emergency Department today for your care. It was a pleasure to see you today. Please note that your evaluation is INCOMPLETE until you follow-up with your doctor. - Post Discharge Activity
[2017-07-16] MEDS ORDERED: KETOROLAC TROMETHAMINE 60 MG/2 ML VIAL IM ONE (06:07)
[2017-07-16] MEDS ORDERED: KETOROLAC TROMETHAMINE 60 MG/2 ML VIAL ONE (06:07)
[2017-07-16] MEDS ORDERED: GABAPENTIN 100 MG CAPSULE (FP) PO ONE (06:08)
== END 2017-07-16 06:59 | disposition home or self-care (01) ==
LOC: FER 05:47
PROC: 3E0233Z Introduction of Anti-inflammatory into Muscle, Percutaneous Approach (ICD-10-PCS; principal; 2017-07-16)
DX: M54.2 Cervicalgia (principal); M54.9 Dorsalgia, unspecified; M62.838 Other muscle spasm; M45.9 Ankylosing spondylitis of unspecified sites in spine; F41.9 Anxiety disorder, unspecified; K21.9 Gastro-esophageal reflux disease without esophagitis
CPT/HCPCS: 96372; 99281-25

== ENCOUNTER 2017-08-07 18:07 | Emergency (ER) | payer OTHER ==
[2017-08-07 19:01] VITALS: BP 113/71; PULSE 79; TEMP 98.3; BMI 28.1
--- NOTE | 2017-08-07 19:18 | PDOC ---
History of Present Illness - History of Present Illness Initial Comments: 08/07/17 19:37 The patient is a 56 year old male with history of cervical ankylosing spondylitis, well known to the ED for recurrent visits for complaints of chronic neck and back pain, who presents to the ED complaining of several days of neck and bilateral shoulder pain. He states he had a steroid injection to the neck by his pain specialist several days ago prior to the onset of his current episode of pain. On evaluation he states he "thinks he is taking too much Toradol" and requests Tramadol for pain relief. No numbness or tingling. No headache. No fever, chills, or rash. PAST MEDICAL HISTORY: see HPI PAST SURGICAL HISTORY: see HPI FAMILY HISTORY: no pertinent history MEDICATIONS: reviewed ALLERGIES: As per nursing notes Review of Systems General: No fevers or chills, no weakness, no weight loss HEENT: No change in vision. No sore throat, No ear pain CardioVascular: No chest pain or shortness of breath Respiratory:No cough, or wheezing. Gastrointestinal: no nausea, vomiting, diarrhea or constipation, No rectal bleeding Genitourinary: No dysuria, hematuria, or frequency Musculoskeletal: No joint or muscle pain or swelling Neurologic: No headache, vertigo, dizziness or loss of consciousness Psychiatric: nor depression Skin: No rashes or easy bruising Endocrine: no increased thirst or abnormal weight change Allergic: no skin or latex allergy All other systems reviewed and normal Physical Exam GENERAL: The patient is awake, alert, and fully oriented, in no acute distress. HEAD: Normal with no signs of trauma. EYES: Pupils equal, round and reactive to light, extraocular movements intact, sclera anicteric, conjunctiva clear. Extremities: +Bilateral cervical paraspinal and trapezium ttp with positive spasm. Warm, dry, no cyanosis, clubbing, or edema NEUROLOGICAL: Normal speech, normal gait. PSYCH: Normal mood, normal affect. SKIN: Warm, Dry, normal turgor, no rashes or lesions noted. <Nafisa Davila - Last Filed: 08/07/17 20:19> - General History Source: Patient Exam Limitations: No Limitations - History of Present Illness Initial Comments: A portion of this note was documented by scribe services under my direction. I have reviewed the details of the note, within reason, and agree with the documentation. The case summary and management plan written by me. This is a 56-year-old male who is a frequent flier here. Patient comes in 2-3 times a month and sometimes more frequently. I've seen him multiple times in the past for the same complaint. Patient comes in this time because he is looking for an opioid pain medication. I discussed with patient the importance of not starting opioids it without the management of his pain specialist. Patient was offered Toradol which she said works but didn't want to take it. Patient was referred back to his pain specialist for additional pain management. Patient refused the Toradol. <Priyank Dyer I - Last Filed: 08/07/17 20:23> - General Chief Complaint: Chronic pain Stated Complaint: CHRONIC NECK AND BACK PAIN Time Seen by Provider: 08/07/17 19:17 Past History <Nafisa Davila - Last Filed: 08/07/17 20:19> - Past Medical History Anemia: No Asthma: No Cancer: No Cardiac Disorders: No CVA: No COPD: No CHF: No Dementia: No Diabetes: No GI Disorders: No Disorders: Yes (GERD) HTN: No Hypercholesterolemia: No Liver Disease: No Psychiatric Problems: Yes (anxiety) Seizures: No Thyroid Disease: No Other medical history: chronic neck back pain - Surgical History Abdominal Surgery: Yes (HERNIA REPAIR) - Immunization History Immunization Up to Date: Yes - Suicide/Smoking/Psychosocial Hx Smoking Status: No Smoking History: Never smoked Have you smoked in the past 12 months: No Number of Cigarettes Smoked Daily: 0 Information on smoking cessation initiated: No Hx Alcohol Use: No Drug/Substance Use Hx: No Substance Use Type: Prescribed Hx Substance Use Treatment: No <Priyank Dyer I - Last Filed: 08/07/17 20:23> - Past Medical History Allergies/Adverse Reactions: Allergies Allergy/AdvReac Type Severity Reaction Status Date / Time Penicillins Allergy Intermediate Verified 08/07/17 18:13 clindamycin Allergy Verified 08/07/17 18:13 codeine phosphate Allergy Verified 08/07/17 18:13 [From Tylenol-Codeine] cyclobenzaprine HCl Allergy Verified 08/07/17 18:13 [From Flexeril] fluoxetine HCl [From Prozac] Allergy Verified 08/07/17 18:13 metaxalone [From Skelaxin] Allergy Verified 08/07/17 18:13 oxycodone HCl [From Percocet] Allergy Verified 08/07/17 18:13 aspirin AdvReac Verified 08/07/17 18:13 Home Medications: Ambulatory Orders Acetaminophen [Tylenol] 1,000 mg PO DAILY 07/16/17 Celecoxib [Celebrex] 200 mg PO DAILY 07/16/17 Folic Acid 1 mg PO DAILY 07/16/17 Gabapentin [Neurontin -] 100 mg PO TID 07/16/17 Lorazepam [Ativan] 1 mg PO BID 07/16/17 Quetiapine Fumarate [Seroquel] 50 tab PO HS 07/16/17 Tizanidine HCl 2 mg PO 08/07/17 *Physical Exam - Vital Signs Last Vital Signs Temp Pulse Resp BP Pulse Ox 98.3 F 79 20 113/71 97 08/07/17 18:08 08/07/17 18:08 08/07/17 18:08 08/07/17 18:08 08/07/17 18:08 <Nafisa Davila - Last Filed: 08/07/17 20:19> - Vital Signs Last Vital Signs Temp Pulse Resp BP Pulse Ox 98.3 F 79 20 113/71 97 08/07/17 18:08 08/07/17 18:08 08/07/17 18:08 08/07/17 18:08 08/07/17 18:08 <Priyank Dyer I - Last Filed: 08/07/17 20:23> *DC/Admit/Observation/Transfer - Attestations Scribe Attestion: 08/07/17 19:51 Documentation prepared by Nafisa Davila, acting as medical equipment technician for Priyank Dyer MD. <Nafisa Davila - Last Filed: 08/07/17 20:19> - Discharge Dispostion Admit: No <Priyank Dyer I - Last Filed: 08/07/17 20:23> Diagnosis at time of Disposition: Neck pain - Discharge Dispostion Disposition: HOME Condition at time of disposition: Stable - Patient Instructions Additional Instructions: Continued to take all your medications as prescribed. Call your pain specialist in the morning let them know how you are doing and discuss with them whether or not you need any additional medications such as the tramadol. Return to the emergency department immediately with ANY new, persistent or worsening symptoms. Continue any medications as previously prescribed by your physician. You should follow up with your primary doctor as soon as possible regarding today's emergency department visit. . Please make sure your doctor reviews the results of your emergency evaluation. Thank you for coming to the Emergency Department today for your care. It was a pleasure to see you today. Please note that your evaluation is INCOMPLETE until you follow-up with your doctor.
[2017-08-07] MEDS ORDERED: diphenhydrAMINE HCL 50 MG CAPSULE PO ONE (19:28)
[2017-08-07] MEDS ORDERED: KETOROLAC TROMETHAMINE 30 MG/1 ML VIAL IM ONE (19:28)
[2017-08-07] MEDS ORDERED: diphenhydrAMINE HCL 25 MG CAPSULE (FP) PO ONE (19:34)
[2017-08-07] MEDS ORDERED: KETOROLAC TROMETHAMINE 30 MG/1 ML VIAL ONE (19:34)
== END 2017-08-07 19:49 | disposition home or self-care (01) ==
LOC: FER 18:07
DX: M54.2 Cervicalgia (principal); F41.9 Anxiety disorder, unspecified; K21.9 Gastro-esophageal reflux disease without esophagitis; G89.29 Other chronic pain
CPT/HCPCS: 99282-25

== ENCOUNTER 2017-10-19 10:28 | Emergency (ER) | payer OTHER | END 2017-10-19 11:25 | disposition home or self-care (01) | LOC: FER 10:28 | CPT/HCPCS: 99283-25 ==

== ENCOUNTER 2017-10-31 14:40 | Emergency (ER) | payer OTHER ==
[2017-10-31 14:53] VITALS: BP 122/71; PULSE 94; TEMP 98.6; BMI 22.1
--- NOTE | 2017-10-31 14:56 | PDOC ---
History of Present Illness - General Chief Complaint: Chronic pain Stated Complaint: NECK, BACK PAIN Time Seen by Provider: 10/31/17 14:54 - History of Present Illness Initial Comments: 10/31/17 14:57 Mr. Langston is a 57 yo male w/ pmh of anxiety, ankylosing spondylitis, and chronic neck and back pain who presents c/o a 5 day history of exacerbation of his neck/back pain symptoms. He reports he has been attempting to whittle down his medications recently but has been unsuccessful in controlling his ankylosing spondylitis pain. He reports he has had relief from symptoms in the past with toradol. The patient denies chest pain, shortness of breath, headache and dizziness. Denies fever, chills, nausea, vomit, diarrhea and constipation. Denies dysuria, frequency, urgency and hematuria. Allergies: Penicillins, clindamycin, codeine, cyclobenzaprine, fluoxetine, metaxalone, oxycodone, aspirin Past History - Past Medical History Allergies/Adverse Reactions: Allergies Allergy/AdvReac Type Severity Reaction Status Date / Time Penicillins Allergy Intermediate Verified 10/31/17 14:42 clindamycin Allergy Verified 10/31/17 14:42 codeine phosphate Allergy Verified 10/31/17 14:42 [From Tylenol-Codeine] cyclobenzaprine HCl Allergy Verified 10/31/17 14:42 [From Flexeril] fluoxetine HCl [From Prozac] Allergy Verified 10/31/17 14:42 metaxalone [From Skelaxin] Allergy Verified 10/31/17 14:42 oxycodone HCl [From Percocet] Allergy Verified 10/31/17 14:42 aspirin AdvReac Verified 10/31/17 14:42 Home Medications: Ambulatory Orders Acetaminophen [Tylenol] 1,000 mg PO DAILY 07/16/17 Celecoxib [Celebrex] 200 mg PO DAILY 07/16/17 Folic Acid 1 mg PO DAILY 07/16/17 Gabapentin [Neurontin -] 300 mg PO AM 07/16/17 Lorazepam [Ativan] 1 mg PO BID 07/16/17 Quetiapine Fumarate [Seroquel] 50 tab PO HS 07/16/17 Gabapentin [Neurontin] 300 mg PO HS 09/05/17 Methotrexate Sodium [Methotrexate] 2.5 mg PO WEEKLY 09/05/17 Duloxetine HCl [Cymbalta] 30 mg PO DAILY 10/03/17 Gabapentin 100 mg PO DAILY 10/03/17 Tizanidine HCl 4 mg PO TID 10/03/17 Tramadol HCl/Acetaminophen [Tramadol-Acetaminophn 37.5-325] 2 each PO BID #8 tablet MDD 4 10/10/17 Anemia: No Asthma: No Cancer: No Cardiac Disorders: No CVA: No COPD: No CHF: No Dementia: No Diabetes: No GI Disorders: No Disorders: Yes (GERD) HTN: No Hypercholesterolemia: No Liver Disease: No Psychiatric Problems: Yes (anxiety) Seizures: No Thyroid Disease: No Other medical history: chronic neck, back pain - Surgical History Abdominal Surgery: Yes (HERNIA REPAIR) - Immunization History Immunization Up to Date: Yes - Suicide/Smoking/Psychosocial Hx Smoking Status: No Smoking History: Never smoked Have you smoked in the past 12 months: No Number of Cigarettes Smoked Daily: 0 Information on smoking cessation initiated: No Hx Alcohol Use: No Drug/Substance Use Hx: No Substance Use Type: Prescribed Hx Substance Use Treatment: No Review of Systems - Review of Systems Comments:: 10/31/17 15:34 GENERAL/CONSTITUTIONAL: No fever or chills. No weakness. HEAD, EYES, EARS, NOSE AND THROAT: No change in vision. No ear pain or discharge. No sore throat. CARDIOVASCULAR: No chest pain or shortness of breath RESPIRATORY: No cough, wheezing, or hemoptysis. GASTROINTESTINAL: No nausea, vomiting, diarrhea or constipation. GENITOURINARY: No dysuria, frequency, or change in urination. MUSCULOSKELETAL: +Generalized intermittent neck/back pain as described. No joint or muscle swelling or pain. SKIN: No rash NEUROLOGIC: No headache, vertigo, loss of consciousness, or change in strength/ sensation. ENDOCRINE: No increased thirst. No abnormal weight change HEMATOLOGIC/LYMPHATIC: No anemia, easy bleeding, or history of blood clots. ALLERGIC/IMMUNOLOGIC: No hives or skin allergy. *Physical Exam - Vital Signs Last Vital Signs Temp Pulse Resp BP Pulse Ox 98.6 F 94 H 18 122/71 98 10/31/17 14:40 10/31/17 14:40 10/31/17 14:40 10/31/17 14:40 10/31/17 14:40 - Physical Exam Comments: 10/31/17 15:35 GENERAL: Awake, alert, and fully oriented, in no acute distress HEAD: No signs of trauma, normocephalic, atraumatic EYES: PERRLA, EOMI, sclera anicteric, conjunctiva clear ENT: Auricles normal inspection, hearing grossly normal, nares patent, oropharynx clear without exudates. Moist mucosa NECK: Normal ROM, supple, no lymphadenopathy, JVD, or masses LUNGS: No distress, speaks full sentences, clear to auscultation bilaterally HEART: Regular rate and rhythm, normal S1 and S2, no murmurs, rubs or gallops, peripheral pulses normal and equal bilaterally. ABDOMEN: Soft, nontender, normoactive bowel sounds. No guarding, no rebound. No masses EXTREMITIES: Normal inspection, Normal range of motion, no edema. No clubbing or cyanosis. NEUROLOGICAL: Cranial nerves II through XII grossly intact. Normal speech, normal gait, no focal sensorimotor deficits SKIN: Warm, Dry, normal turgor, no rashes or lesions noted. Medical Decision Making - Medical Decision Making 10/31/17 15:39 Mr. Langston is a 57 yo male w/ pmh as described who presents for evaluation of chronic symptoms as described. Patient reports longstanding problems are often improved with toradol administration. Toradol given for symptomatic relief. 10/31/17 15:59 Patient reporting relief from symptoms after toradol IM. Discharging w/ instructions to f/u with travel occupational therapist and pcp for further evaluation. Patient verbalized agreement and understanding and will comply. *DC/Admit/Observation/Transfer Diagnosis at time of Disposition: Neck pain Back pain Qualifiers: Back pain location: back pain in unspecified location Chronicity: unspecified Back pain laterality: unspecified Qualified Code(s): M54.9 - Dorsalgia, unspecified - Discharge Dispostion Disposition: HOME Condition at time of disposition: Stable - Referrals Referrals: Eros Gómez MD [Primary Care Provider] - Zulay Bateman MD [Staff Physician] - - Patient Instructions Printed Discharge Instructions: DI for Ankylosing Spondylitis Additional Instructions: Please follow-up with travel occupational therapist and primary care provider as discussed. Return to ER if any increase in pain, fever, chills, or other concerning symptoms. - Post Discharge Activity
[2017-10-31] MEDS ORDERED: KETOROLAC TROMETHAMINE 15 MG/ML VIAL IM ONE (15:29)
[2017-10-31] MEDS ORDERED: KETOROLAC TROMETHAMINE 15 MG/ML VIAL ONE (15:31)
--- NOTE | 2017-10-31 16:09 | PDOC ---
Attending Attestation - Resident Resident Name: Rob Ruiz - ED Attending Attestation I have performed the following: I have examined & evaluated the patient, The case was reviewed & discussed with the resident, I agree w/resident's findings & plan, Exceptions are as noted - HPI HPI: 10/31/17 16:01 Mr. Langston is a 57 year old male, with a significant past medical history of anxiety, ankylosing spondylosis, chronic neck and back pain, who presents to the emergency department with an exacerbation of his back pain, neck pain and also reports bilateral eye pressure. Only recent change to his medications are the increase in his gabapentin which has made him more stiff He is s/p cortisone injection in his neck 3 months ago, this did not help him The patient reports that his back pain and stiffness is a 9/10 in severity. No fevers or chills No trauma Pt ambulatory but is stiff His predominant symptoms is stiffness, neck pain and eye pressure He denies fever, chills, sweats, cough, N/V/D, bladder or bowel incontinence and retention Allergies: penicillin, clindamycin, codeine, fluoxetine HCl, metaxalone, oxycodone HCl, aspirin Past surgical history: Hernia repair Social history: Never smoked. Denies alcohol or illicit drug use. Manager Inpatient: Dr. Zulay Bateman - Physicial Exam PE: 10/31/17 16:04 GENERAL: The patient is in no acute distress, pt appears stiff. HEAD: Normal EYES: PERRLA, EOMI, ENT: Ears normal, nares patent, Moist mucous membranes. NECK: Pt is stiff in his neck, moves upper back in order to turn his head left and right LUNGS: Breath sounds equal, clear to auscultation bilaterally. HEART: Regular rate and rhythm, normal S1 and S2 without murmur, rub or gallop. ABDOMEN: Soft, nontender, normoactive bowel sounds. EXTREMITIES: Normal range of motion NEUROLOGICAL: Cranial nerves II through XII grossly intact. Normal speech. No focal neurological deficits. MUSCULOSKELETAL: no midline point tenderness, general back stiffness SKIN: No rashes noted - Medical Decision Making 10/31/17 16:05 Pt is well known to the ER Has a h/o ankylosing spondolytis presents with pain and stiffness He presents requesting toradol shot No h/o renal insufficiency, chart review demonstrates labs from 1 year ago Will give toradol Will ask pt to follow up with pain management (Dr Roque, unable to give narcotic pain medications as pt is being followed by pain management) Will ask pt to follow up with Rheumatology Pain improved Clinical Impression: Chronic neck and back pain, repeat presentation
== END 2017-10-31 16:35 | disposition home or self-care (01) ==
LOC: FER 14:40
PROC: 3E0233Z Introduction of Anti-inflammatory into Muscle, Percutaneous Approach (ICD-10-PCS; principal; 2017-10-31)
DX: M54.2 Cervicalgia (principal); M54.9 Dorsalgia, unspecified; M45.9 Ankylosing spondylitis of unspecified sites in spine; G89.29 Other chronic pain; F41.0 Panic disorder [episodic paroxysmal anxiety]; K21.9 Gastro-esophageal reflux disease without esophagitis
CPT/HCPCS: 96372; 99283-25

== ENCOUNTER 2017-11-11 20:18 | Emergency (ER) | payer OTHER ==
[2017-11-11 20:40] VITALS: BP 130/82; PULSE 80; TEMP 98.8; BMI 22.3
[2017-11-11] MEDS ORDERED: KETOROLAC TROMETHAMINE 15 MG/ML VIAL IM ONE (20:41)
[2017-11-11] MEDS ORDERED: ACETAMINOPHEN 325 MG TABLET (FP) PO ONE (20:41)
--- NOTE | 2017-11-11 20:51 | PDOC ---
History of Present Illness - General History Source: Patient, Old Records Exam Limitations: No Limitations - History of Present Illness Initial Comments: 11/11/17 20:51 The patient is a 57 year old male with a significant past medical history of anxiety, ankylosing spondylosis, chronic neck and back pain, who presents to the emergency department with an exacerbation of his back pain and neck pain. He reports that he is in excruciating pain and is unable to move secondarily to his pain. He reports he has had relief of symptoms in the past with toradol and tylenol. (Pt states "tramadol", but ED records and review of [facility] shows no tramadol prescriptions, ED records state that pt responds well to toradol). <Kurt Pena - Last Filed: 11/11/17 20:51> <Trinh Nash - Last Filed: 11/11/17 20:59> - General Chief Complaint: Chronic pain Stated Complaint: NECK & BACK PAIN Time Seen by Provider: 11/11/17 20:24 Past History <Kurt Pena - Last Filed: 11/11/17 20:51> - Past Medical History Anemia: No Asthma: No Cancer: No Cardiac Disorders: No CVA: No COPD: No CHF: No Dementia: No Diabetes: No GI Disorders: No Disorders: Yes (GERD) HTN: No Hypercholesterolemia: No Liver Disease: No Psychiatric Problems: Yes (anxiety) Seizures: No Thyroid Disease: No Other medical history: CHRONIC PAIN - Surgical History Abdominal Surgery: Yes (HERNIA REPAIR) - Immunization History Immunization Up to Date: Yes - Suicide/Smoking/Psychosocial Hx Smoking Status: No Smoking History: Never smoked Have you smoked in the past 12 months: No Number of Cigarettes Smoked Daily: 0 Hx Alcohol Use: No Drug/Substance Use Hx: No Substance Use Type: None, Prescribed Hx Substance Use Treatment: No <Trinh Nash - Last Filed: 11/11/17 20:59> - Past Medical History Allergies/Adverse Reactions: Allergies Allergy/AdvReac Type Severity Reaction Status Date / Time Penicillins Allergy Intermediate Verified 10/31/17 14:42 clindamycin Allergy Verified 10/31/17 14:42 codeine phosphate Allergy Verified 10/31/17 14:42 [From Tylenol-Codeine] cyclobenzaprine HCl Allergy Verified 10/31/17 14:42 [From Flexeril] fluoxetine HCl [From Prozac] Allergy Verified 10/31/17 14:42 metaxalone [From Skelaxin] Allergy Verified 10/31/17 14:42 oxycodone HCl [From Percocet] Allergy Verified 10/31/17 14:42 aspirin AdvReac Verified 10/31/17 14:42 Home Medications: Ambulatory Orders Acetaminophen [Tylenol] 1,000 mg PO DAILY 07/16/17 Celecoxib [Celebrex] 200 mg PO DAILY 07/16/17 Folic Acid 1 mg PO DAILY 07/16/17 Lorazepam [Ativan] 1 mg PO BID 07/16/17 Quetiapine Fumarate [Seroquel] 50 tab PO HS 07/16/17 Methotrexate Sodium [Methotrexate] 2.5 mg PO WEEKLY 09/05/17 Duloxetine HCl [Cymbalta] 30 mg PO DAILY 10/03/17 Tizanidine HCl 4 mg PO TID 10/03/17 Gabapentin [Neurontin] 100 mg PO TID 11/11/17 Tramadol HCl/Acetaminophen [Tramadol-Acetaminophn 37.5-325] 2 each PO BID #8 tablet MDD 4 11/11/17 Review of Systems - Review of Systems Able to Perform ROS?: Yes Comments:: 11/11/17 20:52 See HPI. All other systems reviewed and unremarkable <Kurt Pena - Last Filed: 11/11/17 20:51> *Physical Exam - Vital Signs Last Vital Signs Temp Pulse Resp BP Pulse Ox 98.8 F 80 16 130/82 99 11/11/17 20:19 11/11/17 20:19 11/11/17 20:19 11/11/17 20:19 11/11/17 20:19 - Physical Exam Comments: 11/11/17 20:52 GENERAL: Awake, alert, and fully oriented, in no acute distress HEENT: EOMI, CARLOS MMM, OP WNL NECK: NCAT, no midline cervical tenderness CARDIOVASCULAR: RRR, nl s1/s2, no m/r/g LUNGS: CTABL, no w/r/r ABDOMEN: Soft, NTND EXTREMITIES: No edema, WWP, no rash NEURO: Neuro grossly intact, gait WNL, moving all 4. A&O x 3, mood/affect WNL. SKIN: Warm, Dry, normal turgor, no rashes or lesions noted. <Kurt Pena - Last Filed: 11/11/17 20:51> - Vital Signs Last Vital Signs Temp Pulse Resp BP Pulse Ox 98.8 F 80 16 130/82 99 11/11/17 20:19 11/11/17 20:19 11/11/17 20:19 11/11/17 20:19 11/11/17 20:19 <Trinh Nash - Last Filed: 11/11/17 20:59> Moderate Sedation - Procedure Monitoring Vital Signs: Vital Signs Temp Pulse Resp BP Pulse Ox 98.8 F 80 16 130/82 99 11/11/17 20:19 11/11/17 20:19 11/11/17 20:19 11/11/17 20:19 11/11/17 20:19 <Kurt Pena - Last Filed: 11/11/17 20:51> - Procedure Monitoring Vital Signs: Vital Signs Temp Pulse Resp BP Pulse Ox 98.8 F 80 16 130/82 99 11/11/17 20:19 11/11/17 20:19 11/11/17 20:19 11/11/17 20:19 11/11/17 20:19 <Trinh Nash - Last Filed: 11/11/17 20:59> Medical Decision Making - Medical Decision Making 11/11/17 20:52 Documentation prepared by Kurt Pena, acting as medical laboratory assistant for Trinh Nash MD. <Kurt Pena - Last Filed: 11/11/17 20:51> - Medical Decision Making 11/11/17 20:54 57yoM well known to ER for chronic pain 2/2 anklosing spondylisis presents w/ same. Per pt report, his Pony Ride Operator is starting him on Tramadol but forgot to submit the Rx. Report is corroborated by RN in ER, who called rheum last time pt was here. - pain control - 3d Rx for Tramadol. <Trinh Nash - Last Filed: 11/11/17 20:59> *DC/Admit/Observation/Transfer <Kurt Pena - Last Filed: 11/11/17 20:51> - Discharge Dispostion Decision to Admit order: No <SaadTrinh Luisito - Last Filed: 11/11/17 20:59> Diagnosis at time of Disposition: Chronic neck and back pain - Discharge Dispostion Disposition: HOME - Prescriptions Prescriptions: Tramadol HCl/Acetaminophen [Tramadol-Acetaminophn 37.5-325] 2 each PO BID #8 tablet MDD 4 - Referrals Referrals: Eros Gómez MD [Primary Care Provider] - - Patient Instructions - Post Discharge Activity
[2017-11-11] MEDS ORDERED: ACETAMINOPHEN 325 MG TABLET (FP) ONE (20:56)
[2017-11-11] MEDS ORDERED: KETOROLAC TROMETHAMINE 15 MG/ML VIAL ONE (20:56)
== END 2017-11-11 21:51 | disposition home or self-care (01) ==
LOC: FER 20:18
PROC: 3E0233Z Introduction of Anti-inflammatory into Muscle, Percutaneous Approach (ICD-10-PCS; principal; 2017-11-11)
DX: M54.2 Cervicalgia (principal); M54.9 Dorsalgia, unspecified; G89.29 Other chronic pain; M45.9 Ankylosing spondylitis of unspecified sites in spine; F41.9 Anxiety disorder, unspecified; K21.9 Gastro-esophageal reflux disease without esophagitis
CPT/HCPCS: 96372; 99282-25

== ENCOUNTER 2017-12-04 09:35 | Emergency (ER) | payer OTHER ==
[2017-12-04] MEDS ORDERED: KETOROLAC TROMETHAMINE 60 MG/2 ML VIAL IM ONE (09:41)
[2017-12-04] MEDS ORDERED: LORazepam 1 MG TABLET PO ONE (09:42)
--- NOTE | 2017-12-04 09:42 | PDOC ---
History of Present Illness - General Chief Complaint: Chronic pain Stated Complaint: NECK PAIN Time Seen by Provider: 12/04/17 09:41 - History of Present Illness Initial Comments: 12/04/17 09:52 Chief complaint: Neck and back low back pain history of present illness: History of present illness: Exacerbation of chronic neck and low back pain since last night. On gabapentin, tramadol, for pain management. Sees pain management physician. No acute injury or trauma. Review of systems: No visual or focal neurologic symptoms, unsteadiness of gait , bowel or bladder incontinence or retention. Remainder systems reviewed and found to be negative Past medical history: Ankylosing spondylitis Social/family history reviewed and noncontributory Physical exam: Alert oriented well-developed well-nourished no acute distress cooperative There is straightening of the cervical and lumbar spine with no point tenderness of the vertebral bodies and no external sign of inflammation PERRLA, fundi benign, ENT clear Chest clear CV regular without murmur rub or gallop Abdomen benign Neurological C2 to 12 intact. Strength full and symmetric. No focal sensory or motor deficits. Gait stable and unimpaired Impression: Exacerbation of chronic neck and back pain Plan: Analgesics, return to pain management physician and physician intensivist for further evaluation and treatment. Past History - Past Medical History Allergies/Adverse Reactions: Allergies Allergy/AdvReac Type Severity Reaction Status Date / Time Penicillins Allergy Intermediate Verified 10/31/17 14:42 clindamycin Allergy Verified 10/31/17 14:42 codeine phosphate Allergy Verified 10/31/17 14:42 [From Tylenol-Codeine] cyclobenzaprine HCl Allergy Verified 10/31/17 14:42 [From Flexeril] fluoxetine HCl [From Prozac] Allergy Verified 10/31/17 14:42 metaxalone [From Skelaxin] Allergy Verified 10/31/17 14:42 oxycodone HCl [From Percocet] Allergy Verified 10/31/17 14:42 aspirin AdvReac Verified 10/31/17 14:42 Home Medications: Ambulatory Orders Acetaminophen [Tylenol] 1,000 mg PO DAILY 07/16/17 Celecoxib [Celebrex] 200 mg PO DAILY 07/16/17 Folic Acid 1 mg PO DAILY 07/16/17 Lorazepam [Ativan] 1 mg PO BID 07/16/17 Quetiapine Fumarate [Seroquel] 50 tab PO HS 07/16/17 Methotrexate Sodium [Methotrexate] 2.5 mg PO WEEKLY 09/05/17 Duloxetine HCl [Cymbalta] 30 mg PO DAILY 10/03/17 Tizanidine HCl 4 mg PO TID 10/03/17 Gabapentin [Neurontin] 200 mg PO TID 11/11/17 Tramadol HCl/Acetaminophen [Tramadol-Acetaminophn 37.5-325] 2 each PO BID #8 tablet MDD 4 11/11/17 Anemia: No Asthma: No Cancer: No Cardiac Disorders: No CVA: No COPD: No CHF: No Dementia: No Diabetes: No GI Disorders: No Disorders: Yes (GERD) HTN: No Hypercholesterolemia: No Liver Disease: No Psychiatric Problems: Yes (anxiety) Seizures: No Thyroid Disease: No - Surgical History Abdominal Surgery: Yes (HERNIA REPAIR) - Immunization History Immunization Up to Date: Yes - Suicide/Smoking/Psychosocial Hx Smoking Status: No Smoking History: Never smoked Have you smoked in the past 12 months: No Number of Cigarettes Smoked Daily: 0 Hx Alcohol Use: No Drug/Substance Use Hx: No Substance Use Type: None, Prescribed Hx Substance Use Treatment: No Medical Decision Making - Medical Decision Making 12/04/17 09:56 Improved with medication. However, declined Ativan. Neurologic exam stable. Follow-up primary physician as directed. 12/04/17 14:53 *DC/Admit/Observation/Transfer Diagnosis at time of Disposition: Cervical paraspinal muscle spasm Ankylosing spondylitis Qualifiers: Ankylosing spondylitis location: multiple sites in spine Qualified Code(s): M45.0 - Ankylosing spondylitis of multiple sites in spine - Discharge Dispostion Disposition: HOME Condition at time of disposition: Improved Decision to Admit order: No - Referrals Referrals: Eros Gómez MD [Primary Care Provider] - 24 hours - Patient Instructions Printed Discharge Instructions: DI for Low Back Pain, DI for Chronic Neck Pain - Post Discharge Activity
[2017-12-04 09:54] VITALS: BP 102/64; PULSE 80; BMI 22.8
[2017-12-04 10:01] VITALS: TEMP 98.6
== END 2017-12-04 11:04 | disposition home or self-care (01) ==
LOC: FER 09:35
PROC: 3E0233Z Introduction of Anti-inflammatory into Muscle, Percutaneous Approach (ICD-10-PCS; principal; 2017-12-04)
DX: M45.0 Ankylosing spondylitis of multiple sites in spine (principal); M62.838 Other muscle spasm; K21.9 Gastro-esophageal reflux disease without esophagitis; F41.9 Anxiety disorder, unspecified
CPT/HCPCS: 99282-25

== ENCOUNTER 2018-01-24 13:21 | Emergency (ER) | payer OTHER ==
[2018-01-24 13:31] VITALS: BP 130/74; PULSE 74; TEMP 98.2; BMI 23.7
--- NOTE | 2018-01-24 13:40 | PDOC ---
History of Present Illness - General Chief Complaint: Pain, Acute Stated Complaint: CHRONIC NECK AND BACK Time Seen by Provider: 01/24/18 13:24 Past History - Past Medical History Allergies/Adverse Reactions: Allergies Allergy/AdvReac Type Severity Reaction Status Date / Time Penicillins Allergy Intermediate Verified 01/24/18 13:22 clindamycin Allergy Verified 01/24/18 13:22 codeine phosphate Allergy Verified 01/24/18 13:22 [From Tylenol-Codeine] cyclobenzaprine HCl Allergy Verified 01/24/18 13:22 [From Flexeril] fluoxetine HCl [From Prozac] Allergy Verified 01/24/18 13:22 metaxalone [From Skelaxin] Allergy Verified 01/24/18 13:22 oxycodone HCl [From Percocet] Allergy Verified 01/24/18 13:22 aspirin AdvReac Verified 01/24/18 13:22 Home Medications: Ambulatory Orders Acetaminophen [Tylenol] 1,000 mg PO DAILY 07/16/17 Celecoxib [Celebrex] 200 mg PO DAILY 07/16/17 Folic Acid 1 mg PO DAILY 07/16/17 Lorazepam [Ativan] 1 mg PO BID 07/16/17 Quetiapine Fumarate [Seroquel] 50 tab PO HS 07/16/17 Methotrexate Sodium [Methotrexate] 2.5 mg PO WEEKLY 09/05/17 Duloxetine HCl [Cymbalta] 30 mg PO DAILY 10/03/17 Tizanidine HCl 4 mg PO TID 10/03/17 Gabapentin [Neurontin] 200 mg PO TID 11/11/17 Tramadol HCl/Acetaminophen [Tramadol-Acetaminophn 37.5-325] 2 each PO BID #8 tablet MDD 4 11/11/17 Anemia: No Asthma: No Cancer: No Cardiac Disorders: No CVA: No COPD: No CHF: No DVT: No Dementia: No Diabetes: No GI Disorders: No Disorders: Yes (GERD) HTN: No Hypercholesterolemia: No Liver Disease: No Psychiatric Problems: Yes (anxiety) Seizures: No Thyroid Disease: No - Surgical History Abdominal Surgery: Yes (HERNIA REPAIR) - Immunization History Immunization Up to Date: Yes - Suicide/Smoking/Psychosocial Hx Smoking Status: No Smoking History: Never smoked Have you smoked in the past 12 months: No Number of Cigarettes Smoked Daily: 0 Hx Alcohol Use: No Drug/Substance Use Hx: No Substance Use Type: None, Prescribed Hx Substance Use Treatment: No *Physical Exam - Vital Signs Last Vital Signs Temp Pulse Resp BP Pulse Ox 98.2 F 74 16 130/74 97 01/24/18 13:22 01/24/18 13:22 01/24/18 13:22 01/24/18 13:22 01/24/18 13:22 *DC/Admit/Observation/Transfer Diagnosis at time of Disposition: Neck pain - Discharge Dispostion Disposition: HOME Condition at time of disposition: Improved Decision to Admit order: No - Referrals Referrals: Eros Gómez MD [Primary Care Provider] - - Patient Instructions - Post Discharge Activity
[2018-01-24] MEDS ORDERED: traMADol HCL 50 MG TABLET PO ONE (13:53)
[2018-01-24] MEDS ORDERED: traMADol HCL 50 MG TABLET ONE (14:04)
== END 2018-01-24 14:42 | disposition home or self-care (01) ==
LOC: FER 13:21
DX: M54.2 Cervicalgia (principal); G89.29 Other chronic pain; F41.9 Anxiety disorder, unspecified; K21.9 Gastro-esophageal reflux disease without esophagitis
CPT/HCPCS: 99281-25

== ENCOUNTER 2018-03-17 10:17 | Emergency (ER) | payer OTHER ==
--- NOTE | 2018-03-17 10:27 | PDOC ---
History of Present Illness - History of Present Illness Initial Comments: 03/17/18 10:22 57 yo M with h/o GERD. Ankylosing Spondylitis, and chronic neck/back pain with multiple ED encounters who p/w with back pain. Patient with diffuse unremitting , dull, cervical, thoracic, and lumbar back pain. Pain worse in severity within past week. Cervical neck pain worse with flexion, and extension of neck. Patient states that pain is consistent with prior back pain. Recently seen at pain management physician yesterday and home medication of Tramadol- Acetaminophen 37.5-325 BID sent to pharmacy. However patient will not be able to fill medication until 3-4 PM today and requests home dose in ED. Last imaging 08/12/2016 with findings of ankylosing spondylitis, and absent fracture or subluxation. Pain not improved with home Tylenol today. Patient denies N/V, F,C, CP, SOB, urinary complaints, abdominal pain, diarrhea, constipation, lightheadedness, weakness, sensory changes. PMHx: as noted above ROS: as noted SHx: Denies Etoh ,tobacco, IVDA. Pain management: [phone] PMD: Dr. Salgado <Matt Degroot - Last Filed: 03/17/18 11:20> <Todd Marie - Last Filed: 03/17/18 11:31> - General Chief Complaint: Chronic pain Stated Complaint: CHRONIC BACK AND NECK PAIN Past History - Past Medical History Anemia: No Asthma: No Cancer: No Cardiac Disorders: No CVA: No COPD: No CHF: No DVT: No Dementia: No Diabetes: No GI Disorders: No Disorders: Yes (GERD) HTN: No Hypercholesterolemia: No Liver Disease: No Psychiatric Problems: Yes (anxiety) Seizures: No Thyroid Disease: No - Surgical History Abdominal Surgery: Yes (HERNIA REPAIR) - Immunization History Immunization Up to Date: Yes - Suicide/Smoking/Psychosocial Hx Smoking Status: No Smoking History: Never smoked Have you smoked in the past 12 months: No Number of Cigarettes Smoked Daily: 0 Hx Alcohol Use: No Drug/Substance Use Hx: No Substance Use Type: None, Prescribed Hx Substance Use Treatment: No <Matt Degroot - Last Filed: 03/17/18 11:20> <oTdd Marie - Last Filed: 03/17/18 11:31> - Past Medical History Allergies/Adverse Reactions: Allergies Allergy/AdvReac Type Severity Reaction Status Date / Time Penicillins Allergy Intermediate Verified 03/17/18 10:25 clindamycin Allergy Verified 03/17/18 10:25 codeine phosphate Allergy Verified 03/17/18 10:25 [From Tylenol-Codeine] cyclobenzaprine HCl Allergy Verified 03/17/18 10:25 [From Flexeril] fluoxetine HCl [From Prozac] Allergy Verified 03/17/18 10:25 metaxalone [From Skelaxin] Allergy Verified 03/17/18 10:25 oxycodone HCl [From Percocet] Allergy Verified 03/17/18 10:25 aspirin AdvReac Verified 03/17/18 10:25 Home Medications: Ambulatory Orders Acetaminophen [Tylenol] 1,000 mg PO DAILY 07/16/17 Celecoxib [Celebrex] 200 mg PO DAILY 07/16/17 Lorazepam [Ativan] 1 mg PO BID 07/16/17 Quetiapine Fumarate [Seroquel] 50 tab PO HS 07/16/17 Tizanidine HCl 4 mg PO TID 10/03/17 Gabapentin [Neurontin] 200 mg PO TID 11/11/17 Tramadol HCl/Acetaminophen [Tramadol-Acetaminophn 37.5-325] 2 each PO BID #8 tablet MDD 4 11/11/17 Review of Systems - Review of Systems Comments:: 03/17/18 10:23 GENERAL/CONSTITUTIONAL: No fever or chills. No weakness. HEAD, EYES, EARS, NOSE AND THROAT: No change in vision. No ear pain or discharge. No sore throat. CARDIOVASCULAR: No chest pain or shortness of breath RESPIRATORY: No cough, wheezing, or hemoptysis. GASTROINTESTINAL: No nausea, vomiting, diarrhea or constipation. GENITOURINARY: No dysuria, frequency, or change in urination. MUSCULOSKELETAL: + Back pain. No joint or muscle swelling or pain. SKIN: No rash NEUROLOGIC: No headache, vertigo, loss of consciousness, or change in strength/ sensation. ENDOCRINE: No increased thirst. No abnormal weight change HEMATOLOGIC/LYMPHATIC: No anemia, easy bleeding, or history of blood clots. ALLERGIC/IMMUNOLOGIC: No hives or skin allergy. <Matt Degroot - Last Filed: 03/17/18 11:20> *Physical Exam - Physical Exam Comments: 03/17/18 10:23 GENERAL: Awake, alert, and fully oriented, in no acute distress HEAD: No signs of trauma, normocephalic, atraumatic EYES: PERRLA, EOMI, sclera anicteric, conjunctiva clear ENT: Hearing grossly normal, nares patent, oropharynx clear without exudates. Moist mucosa NECK: Normal ROM, supple, no lymphadenopathy, JVD, or masses LUNGS: No distress, speaks full sentences, clear to auscultation bilaterally HEART: Regular rate and rhythm, normal S1 and S2, no murmurs, rubs or gallops, peripheral pulses normal and equal bilaterally. EXTREMITIES : Normal inspection, Normal range of motion, no edema. No clubbing or cyanosis. NEUROLOGICAL: Cranial nerves II through XII grossly intact. Normal speech, normal gait, no focal sensorimotor deficits Back: + cervical neck pain with neck flexion and extension. Negative midline ttp. + C,T,L Paraspinal ttp, with absent stepoff. Neg skin change. SKIN: Warm, Dry, normal turgor, no rashes or lesions noted <Matt Degroot - Last Filed: 03/17/18 11:20> - Vital Signs Last Vital Signs Temp Pulse Resp BP Pulse Ox 98.4 F 90 16 117/87 98 03/17/18 10:19 03/17/18 10:19 03/17/18 10:19 03/17/18 10:19 03/17/18 10:19 <Todd Marie - Last Filed: 03/17/18 11:31> ED Treatment Course - Medications Given in the ED: ED Medications Discontinued Medications Generic Name Dose Route Start Last Admin Trade Name Freq PRN Reason Stop Dose Admin Tramadol HCl 50 mg 03/17/18 11:11 03/17/18 11:18 Ultram - PO 03/17/18 11:12 50 mg ONCE ONE Administration <Todd Marie - Last Filed: 03/17/18 11:31> Medical Decision Making - Medical Decision Making 03/17/18 10:29 57 yo M with h/o GERD. Ankylosing Spondylitis, and chronic neck/back pain with multiple ED encounters who p/w with back pain. VSS. AF. A&OX3. Patient with absent alarm findings. Denies ,urinary retention, fevers/chills, N/V, abdominal pain. Low suspicion cauda equina, epidural abscess, Ao dissection, disc herniation or fracture. Will provide analgesia and reassess. Ed Course: 03/17/18 11:24 Tramadol 50 mg Patient advised to f/u with PMD and take home medication as prescribed. <Matt Degroot - Last Filed: 03/17/18 11:20> *DC/Admit/Observation/Transfer - Attestations Physician Attestion: 03/17/18 10:23 I attest to the information provided in this note. <Matt Degroot - Last Filed: 03/17/18 11:20> <Todd Marie - Last Filed: 03/17/18 11:31> Diagnosis at time of Disposition: Back pain Qualifiers: Back pain location: back pain in other location Chronicity: chronic Qualified Code(s): M54.9 - Dorsalgia, unspecified - Discharge Dispostion Condition at time of disposition: Stable - Referrals Referrals: [facility] [place] [facility] [place] [Provider Group] - Patient Instructions Printed Discharge Instructions: DI for Thoracic Back Pain Additional Instructions: Please return to the emergency department with any new or worsening symptoms or concerns. Please follow up with your primary care physician within 72 hours.
[2018-03-17 10:35] VITALS: BP 117/87; PULSE 90; TEMP 98.4; BMI 23.4
[2018-03-17] MEDS ORDERED: traMADol HCL 50 MG TABLET PO ONE (11:11)
[2018-03-17] MEDS ORDERED: traMADol HCL 50 MG TABLET ONE (11:17)
--- NOTE | 2018-03-17 11:31 | PDOC ---
Attending Attestation - Resident Resident Name: Akira Degrootson - ED Attending Attestation I have performed the following: I have examined & evaluated the patient, The case was reviewed & discussed with the resident, I agree w/resident's findings & plan, Exceptions are as noted - HPI HPI: 03/17/18 11:30 Agree with Residents HPI - Physicial Exam PE: 03/17/18 11:30 Agree with Residents PE - Medical Decision Making 03/17/18 11:30 Chronic Pain no acute new neurologic findings has a prescription pending for tramadol but cannot be filled to this afternoon requesting one pill of tramadol Findings, the need for follow-up and strict return instructions discussed with patient.
== END 2018-03-17 11:38 | disposition home or self-care (01) ==
LOC: FER 10:17
DX: M54.9 Dorsalgia, unspecified (principal); K21.9 Gastro-esophageal reflux disease without esophagitis; G89.29 Other chronic pain; M45.9 Ankylosing spondylitis of unspecified sites in spine
CPT/HCPCS: 99282-25

== ENCOUNTER 2018-04-14 10:58 | Emergency (ER) | payer OTHER ==
[2018-04-14 11:14] VITALS: BP 116/3; PULSE 89; TEMP 98.2; BMI 25.0
[2018-04-14] MEDS ORDERED: KETOROLAC TROMETHAMINE 30 MG/1 ML VIAL IM ONE (11:15)
[2018-04-14] MEDS ORDERED: KETOROLAC TROMETHAMINE 30 MG/1 ML VIAL ONE (11:18)
--- NOTE | 2018-04-14 11:21 | PDOC ---
History of Present Illness - General Chief Complaint: Chronic pain Stated Complaint: back pain History Source: Patient Exam Limitations: No Limitations - History of Present Illness Initial Comments: 04/14/18 11:16 57y M hx of gerd, ankylosing spondylitis, chronic neck/back pain presents with back/neck pain. Pt states he is currently seeing pain management, states they have been changing his medications around, but have not been very successful in finding a good regiment. States he was recently increased on his dose of gabapentin and was started on tylenol w/ codeine. states the tylenol codeine seems to be makign his spasms worse. The patient denies any fever/chills, new numbness, tingling, weakness, urinary or bowel incontinence. No recent falls or injuries. pt denies any cp, sob, abd pain, n/v, headache. SHx: Denies Etoh ,tobacco, IVDA. PMD: Dr. Salgado Past History - Past Medical History Allergies/Adverse Reactions: Allergies Allergy/AdvReac Type Severity Reaction Status Date / Time Penicillins Allergy Intermediate Verified 03/17/18 10:25 clindamycin Allergy Verified 03/17/18 10:25 codeine phosphate Allergy Verified 03/17/18 10:25 [From Tylenol-Codeine] cyclobenzaprine HCl Allergy Verified 03/17/18 10:25 [From Flexeril] fluoxetine HCl [From Prozac] Allergy Verified 03/17/18 10:25 metaxalone [From Skelaxin] Allergy Verified 03/17/18 10:25 oxycodone HCl [From Percocet] Allergy Verified 03/17/18 10:25 aspirin AdvReac Verified 03/17/18 10:25 Home Medications: Ambulatory Orders Acetaminophen [Tylenol] 1,000 mg PO DAILY 07/16/17 Celecoxib [Celebrex] 200 mg PO DAILY 07/16/17 Lorazepam [Ativan] 1 mg PO BID 07/16/17 Quetiapine Fumarate [Seroquel] 50 tab PO HS 07/16/17 Tizanidine HCl 4 mg PO TID 10/03/17 Gabapentin [Neurontin] 200 mg PO TID 11/11/17 Tramadol HCl/Acetaminophen [Tramadol-Acetaminophn 37.5-325] 2 each PO BID #8 tablet MDD 4 11/11/17 Anemia: No Asthma: No Cancer: No Cardiac Disorders: No CVA: No COPD: No CHF: No DVT: No Dementia: No Diabetes: No GI Disorders: No Disorders: Yes (GERD) HTN: No Hypercholesterolemia: No Liver Disease: No Psychiatric Problems: Yes (anxiety) Seizures: No Thyroid Disease: No - Surgical History Abdominal Surgery: Yes (HERNIA REPAIR) Neurologic Surgery: Yes (ANKALOSISING SPONDALITIS) - Immunization History Immunization Up to Date: Yes - Suicide/Smoking/Psychosocial Hx Smoking Status: No Smoking History: Never smoked Have you smoked in the past 12 months: No Number of Cigarettes Smoked Daily: 0 Information on smoking cessation initiated: No Hx Alcohol Use: No Drug/Substance Use Hx: No Substance Use Type: None, Prescribed Hx Substance Use Treatment: No Review of Systems - Review of Systems Able to Perform ROS?: Yes Comments:: 04/14/18 11:18 see hpi *Physical Exam - Vital Signs Last Vital Signs Temp Pulse Resp BP Pulse Ox 98.2 F 89 20 116/3 L 100 04/14/18 10:59 04/14/18 10:59 04/14/18 10:59 04/14/18 10:59 04/14/18 10:59 - Physical Exam Comments: 04/14/18 11:19 GENERAL: The patient is awake, alert, and fully oriented, Nontoxic - in no acute distress. HEAD: Normocephalic, atraumatic. EYES: extraocular movements intact, sclera anicteric, conjunctiva clear. ENT: Normal voice, Moist mucous membranes. NECK: Normal range of motion, supple,hypertrophied L trapezius, mild focal tendness BACK: No focal tenderness to midline of cervical/throaicc/lumbar spine, n oerythema, fluctuance, induration warmth EXTREMITIES: Normal range of motion, NEUROLOGICAL: No facial assymetry, Normal speech, normal gait SKIN: Warm, Dry, normal turgor, Medical Decision Making - Medical Decision Making 04/14/18 11:20 acute on chronic back pain no red flags including new neuro sx, fever, trauma, focal bony tenderness will give toradol will dc with pain mangement fu return precautions were discussed I discussed the physical exam findings, ancillary test results and final diagnoses with the patient. I answered all of the patient's questions. The patient was satisfied with the care received and felt comfortable with the discharge plan and treatment plan. The patient will call their primary care physician within 24 hours to arrange follow-up and will return to the Emergency Department with any new, persistent or worsening symptoms. *DC/Admit/Observation/Transfer Diagnosis at time of Disposition: Neck pain Back pain Qualifiers: Back pain location: low back pain Chronicity: chronic Back pain laterality: left Sciatica presence: without sciatica Qualified Code(s): M54.5 - Low back pain; G89.29 - Other chronic pain - Discharge Dispostion Disposition: HOME Condition at time of disposition: Stable Decision to Admit order: No - Referrals Referrals: Eros Gómez MD [Non Staff, Medical] - - Patient Instructions Printed Discharge Instructions: DI for Low Back Pain Additional Instructions: Take your pain medications as prescribed by your pain managment doctor. REturn to the ER if you have any new numbness/tingling/weakness, fever/chills, worsening pain, difficulty with urination or bowel movements or other concerns. Print Language: QATARI - Post Discharge Activity
== END 2018-04-14 11:29 | disposition home or self-care (01) ==
LOC: FER 10:58
PROC: 3E0233Z Introduction of Anti-inflammatory into Muscle, Percutaneous Approach (ICD-10-PCS; principal; 2018-04-14)
DX: M54.5 Low back pain (principal); G89.29 Other chronic pain; M54.2 Cervicalgia
CPT/HCPCS: 96372; 99282-25

== ENCOUNTER 2018-08-14 09:25 | Emergency (ER) | payer OTHER ==
[2018-08-14 09:53] VITALS: BP 120/79; PULSE 80; TEMP 98.3; BMI 25.0
[2018-08-14] MEDS ORDERED: KETOROLAC TROMETHAMINE 30 MG/1 ML VIAL IM ONE (10:09)
[2018-08-14] MEDS ORDERED: KETOROLAC TROMETHAMINE 30 MG/1 ML VIAL ONE (10:16)
--- NOTE | 2018-08-14 10:43 | PDOC ---
History of Present Illness - General Chief Complaint: Chronic pain Stated Complaint: CHRONIC NECK PAIN Time Seen by Provider: 08/14/18 09:46 - History of Present Illness Initial Comments: 08/14/18 10:45 57 years old past medical history significant for ankylosing spondylitis chronic neck and back pains presents to the ED with exacerbation of his chronic pain. Patient follows with a pain management doctor who has recently lowered his gabapentin. Since then he has had worsening of his chronic pain no new weakness numbness no fever no chills called his pain management doctor was advised to come to the ED for IM Toradol Past History - Past Medical History Allergies/Adverse Reactions: Allergies Allergy/AdvReac Type Severity Reaction Status Date / Time Penicillins Allergy Intermediate Verified 03/17/18 10:25 clindamycin Allergy Verified 03/17/18 10:25 codeine phosphate Allergy Verified 03/17/18 10:25 [From Tylenol-Codeine] cyclobenzaprine HCl Allergy Verified 03/17/18 10:25 [From Flexeril] fluoxetine HCl [From Prozac] Allergy Verified 03/17/18 10:25 metaxalone [From Skelaxin] Allergy Verified 03/17/18 10:25 oxycodone HCl [From Percocet] Allergy Verified 03/17/18 10:25 aspirin AdvReac Verified 03/17/18 10:25 Home Medications: Ambulatory Orders Acetaminophen [Tylenol] 1,000 mg PO DAILY 07/16/17 Celecoxib [Celebrex] 200 mg PO DAILY 07/16/17 Lorazepam [Ativan] 1 mg PO BID 07/16/17 Tramadol HCl/Acetaminophen [Tramadol-Acetaminophn 37.5-325] 2 each PO BID #8 tablet MDD 4 11/11/17 Carisoprodol [Soma] 350 mg PO BID 08/14/18 Esomeprazole Magnesium [Nexium 24Hr] 20 mg PO DAILY 08/14/18 Gabapentin [Neurontin] 300 mg PO BID 08/14/18 Quetiapine Fumarate [Seroquel -] 25 mg PO HS 08/14/18 Anemia: No Asthma: No Cancer: No Cardiac Disorders: No CVA: No COPD: No CHF: No DVT: No Dementia: No Diabetes: No GI Disorders: No Disorders: Yes (GERD) HTN: No Hypercholesterolemia: No Liver Disease: No Psychiatric Problems: Yes (anxiety) Seizures: No Thyroid Disease: No Other medical history: CHRONIC NECK & BACK PAIN - Surgical History Abdominal Surgery: Yes (HERNIA REPAIR) Neurologic Surgery: Yes (ANKALOSISING SPONDALITIS) - Immunization History Immunization Up to Date: Yes - Suicide/Smoking/Psychosocial Hx Smoking Status: No Smoking History: Never smoked Have you smoked in the past 12 months: No Number of Cigarettes Smoked Daily: 0 Hx Alcohol Use: No Drug/Substance Use Hx: No Substance Use Type: None, Prescribed Hx Substance Use Treatment: No Review of Systems - Review of Systems Comments:: 08/14/18 10:45 ROS: A complete review of 10 out of 10 review of systems is taken and is negative apart from what is previously mentioned below and in the HPI. *Physical Exam - Vital Signs Last Vital Signs Temp Pulse Resp BP Pulse Ox 98.3 F 80 18 120/79 100 08/14/18 09:34 08/14/18 09:34 08/14/18 09:34 08/14/18 09:34 08/14/18 09:34 - Physical Exam Comments: 08/14/18 10:45 Vitals: Triage Vital signs reviewed General Appearance: no acute distress, well nourished well developed, Head: Atraumatic, Neck: Supple;No Nucal rigidity,Diffuse neck pain Cardiac: Regular rate and rhythym, no murmurs, no rubs, no gallops, Lungs: Clear to auscultation bilateral, good air movement bilaterally, Abdomen: Soft, non distended, normal bowel sounds, non tender to palpation Extremities: Full range of motion to all extremities, no cyanosis, clubbing, or edema Skin: Warm and dry, no rashes or lesions, no rash, no petechiae Neuro: AOX3; Cranial Nerves 2-12 grossly intact, Strength intact to all extremities, Sensation intact to all extremities,gait normal Psych: normal mood, normal affect Moderate Sedation - Procedure Monitoring Vital Signs: Procedure Monitoring Vital Signs Temperature 98.3 F 08/14/18 09:34 Pulse Rate 80 08/14/18 09:34 Respiratory Rate 18 08/14/18 09:34 Blood Pressure 120/79 08/14/18 09:34 O2 Sat by Pulse Oximetry (%) 100 08/14/18 09:34 ED Treatment Course - Medications Given in the ED: ED Medications Discontinued Medications Generic Name Dose Route Start Last Admin Trade Name Freq PRN Reason Stop Dose Admin Ketorolac Tromethamine 30 mg 08/14/18 10:09 08/14/18 10:20 Toradol Injection - IM 08/14/18 10:10 30 mg ONCE ONE Administration Medical Decision Making - Medical Decision Making 08/14/18 16:47 Chronic neck pain no focal weakness numbness no new symptoms except pain in the context of a recently decreased gabapentin dose Status post IM Toradol patient feels much better he has follow-up with his pain management doctor on Friday Findings, the need for follow-up and strict return instructions discussed with patient. *DC/Admit/Observation/Transfer Diagnosis at time of Disposition: Neck pain - Discharge Dispostion Disposition: HOME Condition at time of disposition: Good Decision to Admit order: No - Referrals Referrals: Eros Gómez MD [Primary Care Provider] - - Patient Instructions Printed Discharge Instructions: DI for Chronic Neck Pain Additional Instructions: Call your pain management doctor today to discuss if any additional changes need to be made. Return to ED for any new symptoms or for any concerns. - Post Discharge Activity
== END 2018-08-14 11:11 | disposition home or self-care (01) ==
LOC: FER 09:25
PROC: 3E0333Z Introduction of Anti-inflammatory into Peripheral Vein, Percutaneous Approach (ICD-10-PCS; principal; 2018-08-14)
DX: M54.2 Cervicalgia (principal); G89.29 Other chronic pain
CPT/HCPCS: 96372; 99282-25

== ENCOUNTER 2018-10-13 03:35 | Emergency (ER) | payer OTHER ==
[2018-10-13 03:49] VITALS: BP 136/74; PULSE 68; TEMP 97.4; BMI 22.8
--- NOTE | 2018-10-13 03:52 | PDOC ---
History of Present Illness - General Chief Complaint: Injury Stated Complaint: SLIPPED ON BATHROOM FLOOR,HIT HEAD Time Seen by Provider: 10/13/18 03:51 - History of Present Illness Initial Comments: 10/13/18 03:54 This 58-year-old man with a history of ankylosing spondylitis, chronic neck/ back pain and GERD is brought in by ambulance with a history of fall at home. Patient states that he was awakened about an hour prior to presentation with abdominal cramps. He got out of bed to go to the bathroom; according to his , his socks were only partially on and he slipped on the bathroom floor striking the left side of his forehead against a towel rack. Patient sustained a laceration on the left side of his forehead with the impact. He states that he has very severe ("10/10") pain in the area of the laceration There was no loss of consciousness and the patient was able to ambulate after the injury. He denies any other pain except for slight increase in his usual lower back pain. He denies neck pain/chest pain/shortness of breath/extremity pain. He has no nausea/vomiting/diarrhea/constipation. He denies lightheadedness/vertigo /weakness prior to the fall, stating that he slipped and lost his balance. Patient takes Nexium 24 OTC each morning and took his usual dose at 7 AM 10/12; no change in diet or other obvious reason for his abdominal cramping. He was recently an inpatient at [facility] where he was detoxed from tramadol and Soma (discharged 09/28/18) Medications as noted below Multiple ALLERGIES as noted below Past History - Past Medical History Allergies/Adverse Reactions: Allergies Allergy/AdvReac Type Severity Reaction Status Date / Time Penicillins Allergy Intermediate Verified 10/13/18 03:51 clindamycin Allergy Verified 10/13/18 03:51 codeine phosphate Allergy Verified 10/13/18 03:51 [From Tylenol-Codeine] cyclobenzaprine HCl Allergy Verified 10/13/18 03:51 [From Flexeril] fluoxetine HCl [From Prozac] Allergy Verified 10/13/18 03:51 metaxalone [From Skelaxin] Allergy Verified 10/13/18 03:51 oxycodone HCl [From Percocet] Allergy Verified 10/13/18 03:51 aspirin AdvReac Verified 10/13/18 03:51 Home Medications: Ambulatory Orders Celecoxib [Celebrex] 200 mg PO DAILY 07/16/17 Esomeprazole Magnesium [Nexium 24Hr] 20 mg PO DAILY 08/14/18 Gabapentin [Neurontin] 300 mg PO BID 08/14/18 Quetiapine Fumarate [Seroquel -] 25 mg PO HS 08/14/18 Anemia: No Asthma: No Cancer: No Cardiac Disorders: No CVA: No COPD: No CHF: No DVT: No Dementia: No Diabetes: No GI Disorders: No Disorders: Yes (GERD) HTN: No Hypercholesterolemia: No Liver Disease: No Psychiatric Problems: Yes (anxiety) Seizures: No Thyroid Disease: No - Surgical History Abdominal Surgery: Yes (HERNIA REPAIR) Neurologic Surgery: Yes (ANKALOSISING SPONDALITIS) - Immunization History Immunization Up to Date: Yes - Suicide/Smoking/Psychosocial Hx Smoking Status: No Smoking History: Never smoked Have you smoked in the past 12 months: No Number of Cigarettes Smoked Daily: 0 Information on smoking cessation initiated: No Hx Alcohol Use: No Drug/Substance Use Hx: No Substance Use Type: None, Prescribed Hx Substance Use Treatment: No Review of Systems - Review of Systems Able to Perform ROS?: Yes Comments:: 12 point review of systems is negative except for what is noted in the history of present illness *Physical Exam - Vital Signs Last Vital Signs Temp Pulse Resp BP Pulse Ox 97.4 F L 68 16 136/74 100 10/13/18 03:45 10/13/18 03:45 10/13/18 03:45 10/13/18 03:45 10/13/18 03:45 - Physical Exam Comments: GENERAL: Adult male, alert and oriented 3, in no acute distress HEAD: 3.5 cm linear, vertical laceration left side of forehead; lower 1 cm portion of the laceration is full-thickness, the remainder is superficial No other lacerations/abrasions/contusions of head/scalp EYES: PERRLA, pupils 2 mm bilaterally, EOMI, sclera anicteric, conjunctiva clear. ENT: Ears normal, nares patent, oropharynx clear without exudates. Moist mucous membranes. NECK: Decreased mobility of cervical spine consistent with the patient's underlying ankylosing spondylitis No tenderness on direct palpation of cervical vertebrae LUNGS: Breath sounds equal, clear to auscultation bilaterally. No wheezes, and no crackles. HEART:Regular rate and rhythm, normal S1 and S2 without murmur, rub or gallop. ABDOMEN:.normal bowel sounds No guarding,tenderness or rebound.No masses No distention. EXTREMITIES: Normal range of motion, no edema. No clubbing or cyanosis. No erythema, or tenderness. NEUROLOGICAL: Cranial nerves II through XII grossly intact. Normal speech. Moving all 4 extremities normally Procedures - Laceration/Wound Repair Left Upper Face Wound Length: to 2.5 cm Wound Explored: clean Wound's Depth, Shape: linear Irrigated w/ Saline: Yes Betadine Prep: No (chlorhexidine/ethanol) Anesthesia: 1% Lidocaine Amount of Anesthetic (ccs): 1 Wound Repaired With: Sutures Suture Size/Type: 6:0 Number of Sutures: 3 Layer Closure: No Sterile Dressing Applied: No Splint Applied: No Sling Applied: No Progress: Area around left forehead laceration cleansed using Hibiclens/ethanol and sterilely draped. 1 mL of 1% lidocaine infiltrated into tissue of the wound for local anesthesia. Wound irrigated using 20 mL of sterile normal saline. Wound edges of lower 1 cm of wound closely approximated and closed using 3 interrupted sutures of 6-0 nylon. Bacitracin ointment placed on entire 3.5 cm laceration (both on full-thickness and partial-thickness areas). Patient tolerated procedure well Medical Decision Making - Medical Decision Making 10/13/18 04:11 This 58-year-old man with a history of ankylosing spondylitis, chronic neck and back pain, GERD presents after mechanical fall at home: Patient slipped on bathroom floor and struck the left side of his forehead against a towel rack in the bathroom. No LOC but patient has marked pain around area of impact. Other than laceration in the area of impact, exam is generally unremarkable with no focal neurologic deficits. Neck is nontender. Abdomen is soft and nontender. Because of patient's severe pain in the left side of his forehead after direct trauma to the area, noncontrast head CT will be performed to evaluate for acute intracranial pathology. Forehead laceration repaired as noted above. 10/13/18 05:[address] interpreted by Imaging director of hotel operations: Small left frontal laceration noted. No skull fracture. No intracranial bleed or contusion noted. Patient will be discharged with instructions to take Tylenol as needed for headache(refused dose here). He was offered Nexium now but he elected to take the medication at the regular dosing hour of 7 AM. Patient will follow-up with his PMD, Dr. Mccord within the next 2-3 days. He should avoid strenuous activity today and tomorrow. He should return to the ER if he has nausea/vomiting/severe headache/severe lethargy or somnolence. Sutures should be removed on October 19. *DC/Admit/Observation/Transfer Diagnosis at time of Disposition: Forehead laceration Qualifiers: Encounter type: initial encounter Qualified Code(s): S01.81XA - Laceration without foreign body of other part of head, initial encounter Closed head injury Qualifiers: Encounter type: initial encounter Qualified Code(s): S09.90XA - Unspecified injury of head, initial encounter - Discharge Dispostion Disposition: HOME Condition at time of disposition: Stable - Referrals - Patient Instructions Printed Discharge Instructions: How to Care for a Laceration After Repair, Closed Head Injury Additional Instructions: Avoid strenuous activity for the next 48 hours Continue medications as prescribed, including Nexium at 7 AM You can use Tylenol as needed for headache Bacitracin ointment to laceration daily until sutures are removed Have sutures removed on October 19 Return to ER if you have nausea/vomiting, persistent severe headache, unusual lethargy - Post Discharge Activity
== END 2018-10-13 05:20 | disposition home or self-care (01) ==
LOC: FER 03:35
PROC: 0HQ0XZZ Repair Scalp Skin, External Approach (ICD-10-PCS; principal; 2018-10-13)
DX: S01.81XA Laceration without foreign body of other part of head, initial encounter (principal); S09.90XA Unspecified injury of head, initial encounter; W18.39XA Other fall on same level, initial encounter; Y93.89 Activity, other specified; Y92.89 Other specified places as the place of occurrence of the external cause
CPT/HCPCS: 12001-25; 70450-TC; 99281-25

== ENCOUNTER 2018-11-14 11:18 | Emergency (ER) | payer OTHER ==
[2018-11-14 11:27] VITALS: BP 126/76; PULSE 93; TEMP 98.5; BMI 22.8
--- NOTE | 2018-11-14 11:47 | PDOC ---
History of Present Illness - General Chief Complaint: Injury Stated Complaint: DOG ? BITE/SCRATCH/CONTACT Time Seen by Provider: 11/14/18 11:21 History Source: Patient Exam Limitations: No Limitations - History of Present Illness Initial Comments: 11/14/18 11:42 58 yo male no pmhx here with c/o dog bite. pt was walking in building, her neighbors dog who lunged at him on a leash. grabbed pt leg left thigh. domesticated animal. pt was unsure if broke skin or not. but came for evaluation. pain is minimal. initially skin was red, now has resolved. no lesion or active bleeding. no current pain. Past History - Past Medical History Allergies/Adverse Reactions: Allergies Allergy/AdvReac Type Severity Reaction Status Date / Time Penicillins Allergy Intermediate Verified 11/14/18 11:21 clindamycin Allergy Verified 11/14/18 11:21 codeine phosphate Allergy Verified 11/14/18 11:21 [From Tylenol-Codeine] cyclobenzaprine HCl Allergy Verified 11/14/18 11:21 [From Flexeril] fluoxetine HCl [From Prozac] Allergy Verified 11/14/18 11:21 metaxalone [From Skelaxin] Allergy Verified 11/14/18 11:21 oxycodone HCl [From Percocet] Allergy Verified 11/14/18 11:21 aspirin AdvReac Verified 11/14/18 11:21 Home Medications: Ambulatory Orders Celecoxib [Celebrex] 100 mg PO BID 07/16/17 Esomeprazole Magnesium [Nexium 24Hr] 20 mg PO DAILY 08/14/18 Gabapentin [Neurontin] 300 mg PO QID 08/14/18 Quetiapine Fumarate [Seroquel -] 25 mg PO HS 08/14/18 Clonazepam [Klonopin] 0.5 mg PO BID 11/14/18 Clonazepam [Klonopin] 1 mg PO HS 11/14/18 Anemia: No Asthma: No Cancer: No Cardiac Disorders: No CVA: No COPD: No CHF: No DVT: No Dementia: No Diabetes: No GI Disorders: No Disorders: Yes (GERD) HTN: No Hypercholesterolemia: No Liver Disease: No Psychiatric Problems: Yes (anxiety) Seizures: No Thyroid Disease: No Other medical history: CHRONIC NECK ISSUES - Surgical History Abdominal Surgery: Yes (HERNIA REPAIR) Neurologic Surgery: Yes (ANKYLOSING SPONDYLITIS) - Immunization History Immunization Up to Date: Yes - Suicide/Smoking/Psychosocial Hx Smoking Status: No Smoking History: Never smoked Have you smoked in the past 12 months: No Number of Cigarettes Smoked Daily: 0 Information on smoking cessation initiated: No Hx Alcohol Use: No Drug/Substance Use Hx: No Substance Use Type: None, Prescribed Hx Substance Use Treatment: No Review of Systems - Review of Systems Constitutional: No: Diaphoresis, Fever HEENTM: No: Eye Pain Respiratory: No: Cough Cardiac (ROS): No: Chest Pain Musculoskeletal: No: Back Pain Integumentary: Yes: Change in Color (resolved), Other (no laceration or abrasion ) All Other Systems: Reviewed and Negative *Physical Exam - Vital Signs Last Vital Signs Temp Pulse Resp BP Pulse Ox 98.5 F 93 H 18 126/76 98 11/14/18 11:18 11/14/18 11:18 11/14/18 11:18 11/14/18 11:18 11/14/18 11:18 - Physical Exam Comments: 11/14/18 11:45 awake alert lungs clear bilaterally heart rrr no mrg abd skin warm and dry. left thigh no eccymosis. no abrasion. no bit turcios. no discoloration. nuero alert oriented x 3. Medical Decision Making - Medical Decision Making 11/14/18 11:46 pt with bite no actual bite. no skin marking. wasn't sure if he was bit or not, no indication on exam. pt knows neighbor and the dog. is domesticated. animal. due to fact no skin is broken will not require prophylaxis or reporting. dc home. *DC/Admit/Observation/Transfer Diagnosis at time of Disposition: Other contact with dog, initial encounter - Discharge Dispostion Disposition: HOME Condition at time of disposition: Improved Decision to Admit order: No - Referrals Referrals: Eros Gómez MD [Primary Care Provider] - - Patient Instructions Printed Discharge Instructions: Animal Bites Additional Instructions: there is no sign of a dog bite on your leg. no broken skin is noted. you may be sore from the dog bumping into you you can take tylenol 500 mg every 6 hrs as needed for pain. follow up with your doctor as needed. - Post Discharge Activity
== END 2018-11-14 11:55 | disposition home or self-care (01) ==
LOC: FER 11:18
DX: S70.312A Abrasion, left thigh, initial encounter (principal); W54.8XXA Other contact with dog, initial encounter; Y93.89 Activity, other specified; Y92.89 Other specified places as the place of occurrence of the external cause; K21.9 Gastro-esophageal reflux disease without esophagitis; F41.9 Anxiety disorder, unspecified
CPT/HCPCS: 99282-25